=== PATIENT | female | born 1980 | race Caucasian/White ===

== ENCOUNTER 2020-01-03 00:04 | Outpatient (CLI) | payer OTHER, SELFPAY ==
[2020-01-04 17:28] LABS: SARS-CoV-2 RNA PCR Negative
== END 2020-01-03 00:05 | disposition home or self-care (01) ==
LOC: ANHCOVIDDT 00:04
PROVIDERS: PCP Family Medicine; Visit Provider Obstetrics & Gynecology Gynecology
DX: Z01.818 Encounter for other preprocedural examination (principal); Z11.59 Encounter for screening for other viral diseases
CPT/HCPCS: 87635; C9803; U0003

== ENCOUNTER 2020-01-06 02:01 | Day surgery (SDC) | payer OTHER, SELFPAY ==
[2019-12-30 10:30] VITALS: BMI 35.9
[2020-01-06] VITALS (9 sets, daily range): BP systolic 101–146; BP diastolic 52–102; PULSE 73–110; RESP 13–20; TEMP 36.1–36.8; O2SAT 92–99
[2020-01-06] MEDS: LACTATED RINGERS 1,000 ML 30 ML IV CONT ×2 (06:45→08:07)
[2020-01-06] MEDS: SCOPOLAMINE 1.5 MG PATCH TRANSDERM (06:45)
--- NOTE | 2020-01-06 06:50 | WPDANESEPPF ---
Anes - Initial Pre Proc Eval Procedure: Operation Date: 01/06/20 07:30 Proposed Procedures p Laparoscopic Bilateral Tubal Ligation with Fallopian Rings - Megan Stephen MD Date/Time: 01/06/20 06:50 Surgeon: Megan Stephen MD Pre Op Diagnosis: desires sterilization Patient Data Age: 39 Gender: F Height: 5 ft 1 in Weight: 88.1 kg Last Vital Signs Temp 36.8 C 01/06/20 06:15 Pulse 110 H 01/06/20 06:15 Resp 13 01/06/20 06:15 BP 137/86 01/06/20 06:15 Pulse Ox 99 01/06/20 06:15 Allergies Allergy/AdvReac Type Severity Reaction Status Date / Time house dust Allergy Unknown Sneezing Verified 12/30/19 10:31 mold Allergy Unknown Sneezing Verified 12/30/19 10:31 pollen extracts Allergy Unknown Sneezing Verified 12/30/19 10:31 Quinolones AdvReac Mild Confusion Verified 12/30/19 10:31 levofloxacin AdvReac Unknown Confusion Verified 12/30/19 10:31 Home Medications Medication Instructions Recorded Confirmed Type cetirizine [Zyrtec] 10 mg PO DAILY PRN 12/30/19 12/30/19 History dextroamphetamine-amphetamine 10 mg PO DAILY 12/30/19 12/30/19 History [Adderall XR] dextroamphetamine-amphetamine 20 mg PO DAILY 12/30/19 12/30/19 History [Adderall XR] duloxetine 60 mg PO DAILY 12/30/19 12/30/19 History fexofenadine [Ghazal Allergy] 180 mg PO DAILY PRN 12/30/19 12/30/19 History Patient hx anesthesia problems: post op nausea/vomiting Family hx anesthesia problems: none PMFSH Social History Social History Smoking status: Never smoker Tobacco type: cigarettes Alcohol intake: current Drinks per week: 1 Substance use: current Substance use type: marijuana Last use: 12/28/2019 Spiritual care concerns: No Anes - Eval Final PreProcedure Day of Procedure 01/06/20 06:50 Patient weight: obese Heart: regular rate and rhythm Lungs: clear to auscultation Airway: Mallampati scale class II Neurological: alert and oriented Last oral intake: >/= 8 hours ASA classification: III Emergent: no Anesthetic plan: proceed Anesthesia type and monitoring: general ETT and standard monitoring Informed Consent: The patient's anesthetic plan and its attendant risks and benefits were discussed with the patient/family/POA. Questions were solicited and answers provided to the satisfaction of the patient/family/POA.
--- NOTE | 2020-01-06 07:14 | P.HP_ITS ---
History of Present Illness History of Present Illness Consent: Risks, benefits, and alternatives have been discussed and questions answered. Patient agrees to proceed with procedure. Chief complaint: desires sterilization Narrative: Ines John is a 39 year old female who has completed her childbearing and wants to proceed with permanent control. Reviewed laparoscopic BTL risks including infection, bleeding, injury to internal organs, failure with increased ectopic, and general anesthesia. Patient also wants her IUD removed. Patient is aware this is an irreversible sterilizing procedure. She states understanding and agrees to proceed. [facility] Surgical History Surgical History (Updated 01/06/20 @ 07:17 by Megan Stephen MD) H/O sinus surgery S/P knee surgery x 3 Social History Social History Smoking status: Never smoker Tobacco type: cigarettes Alcohol intake: current Drinks per week: 1 Substance use: current Substance use type: marijuana Last use: 12/28/2019 Spiritual care concerns: No Meds Home Medications and Allergies Home Medications Medication Instructions Recorded Confirmed Type cetirizine [Zyrtec] 10 mg PO DAILY PRN 12/30/19 12/30/19 History dextroamphetamine-amphetamine 10 mg PO DAILY 12/30/19 12/30/19 History [Adderall XR] dextroamphetamine-amphetamine 20 mg PO DAILY 12/30/19 12/30/19 History [Adderall XR] duloxetine 60 mg PO DAILY 12/30/19 12/30/19 History fexofenadine [Ghazal Allergy] 180 mg PO DAILY PRN 12/30/19 12/30/19 History Allergies Allergy/AdvReac Type Severity Reaction Status Date / Time house dust Allergy Unknown Sneezing Verified 12/30/19 10:31 mold Allergy Unknown Sneezing Verified 12/30/19 10:31 pollen extracts Allergy Unknown Sneezing Verified 12/30/19 10:31 Quinolones AdvReac Mild Confusion Verified 12/30/19 10:31 levofloxacin AdvReac Unknown Confusion Verified 12/30/19 10:31 Vital Signs Vital Signs - 24 hr 01/06/20 06:15 Temperature 98.3 F Pulse Rate 110 H Respiratory Rate 13 Blood Pressure 137/86 Pulse Oximetry 99 Exam Const: General: no acute distress Resp: Auscultation: clear to auscultation bilaterally Cardio: Rate: regular rate Rhythm: regular rhythm GI: GI Palp: Yes Soft to palpation : External Female Exam: normal external appearance Speculum Exam - Vagina: normal appearance of the vagina Speculum Exam - Cervix: Other cervical findings present (strings at os) Bimanual exam- vagina & uterus: normal bimanual exam Assessment and Plan Assessment and plan (1) Encounter for sterilization: Code(s): Z30.2 - Encounter for sterilization Status: Acute Assessment and Plan: Plan to proceed with laparoscopic BTL.
[2020-01-06] MEDS: KETOROLAC 30 MG/ML VIAL (*BKC) 15 MG IV PUSH (07:59)
--- NOTE | 2020-01-06 07:59 | PM.OP ---
Procedure Note - Brief Procedure Note - Brief Date of procedure: 01/06/20 Pre-op diagnosis: desires sterilization Post-op diagnosis: same Procedure performed: laparoscopic BTL with falope rings; removal of IUD Anesthesia: MARIBELL Surgeon: Megan Stephen MD Estimated blood loss (mL): 5 Drains: No Packing: No Pathology: none sent Complications: No immediate complications Condition: stable Disposition: PACU Findings: IUD strings present; IUD removed intact; Uterus 7 cm; normal appearing tubes, ovaries, and uterus
--- NOTE | 2020-01-06 13:02 | OP_ITS ---
DATE OF PROCEDURE: 01/06/2020 PREOPERATIVE DIAGNOSIS: Requests sterilization and removal of IUD. POSTOPERATIVE DIAGNOSIS: Requests sterilization and removal of IUD. PROCEDURE: Laparoscopic bilateral tubal ligation with Falope rings and removal of IUD. ANESTHESIA: General with ET tube. FINDINGS: The IUD strings are at the os. The IUD is removed intact. The uterus sounds to 7 cm. The tubes, ovaries, and uterus appear grossly normal. ESTIMATED BLOOD LOSS: 5 cc. PATHOLOGY: None. DESCRIPTION OF PROCEDURE: The patient was taken to the operating room, placed under general anesthesia in the dorsal lithotomy position. She was prepped and draped in the usual sterile fashion. Bladder was drained with a red rubber catheter. Perkins speculum was placed in the vagina. Cervix was grasped on the anterior lip with a tenaculum. The IUD strings were grasped. The IUD is removed intact and discarded. The uterus was sounded to 7 cm. A 6 cm roomy manipulator was placed. All other vaginal instruments were removed. Attention was turned to the abdomen. A vertical skin incision was made at the base of the umbilicus. The abdomen was tented with towel clamps and the Veress needle placed. Opening patient pressure was 7 mmHg. Pneumoperitoneum was obtained to a patient pressure of 15. The Veress needle was removed. The 5 mm Optiview to trocar was placed while tenting the abdomen with the towel clamps. Intraabdominal placement was confirmed with the laparoscope. Towel clamps were removed. The patient was placed in Trendelenburg. An 8 mm skin incision was made 2 cm above the symphysis pubis in the midline. The 8 mm trocar was placed. There is significant tenting of the peritoneum. The hook scissors are used under direct visualization to enter the peritoneum. The trocar was then able to be placed fully over the peritoneum. The sleeve is entered into the cavity. The blunt probe was used to bring the tubes into view. The ring applicator is used to grasp the left tube. A good loop of tube was brought up into the applicator and a ring applied. The identical procedure was performed on the opposite side. The applicator misfired and had to be reset removing the ring lower on to the middle portion of the applicator. The ring was then able to be applied. A good loop of tube was noted on both sides. Instruments were removed. Pneumoperitoneum was reduced. Vaginal instruments were removed. Skin incisions were closed by the per diem physical therapist assistant with 4-0 nylon in an interrupted fashion. The patient was awakened from anesthesia and taken to Recovery in stable condition. D I MT: Scooby
== END 2020-01-06 10:06 | disposition home or self-care (01) ==
PROVIDERS: PCP Family Medicine; Visit Provider Obstetrics & Gynecology Gynecology
PROC: (CPT 58671; principal; 2020-01-06 07:30)
DX: Z30.2 Encounter for sterilization (principal); Z30.432 Encounter for removal of intrauterine contraceptive device; F12.90 Cannabis use, unspecified, uncomplicated; E66.9 Obesity, unspecified; Z68.36 Body mass index [BMI] 36.0-36.9, adult
CPT/HCPCS: 58671; 58301; 87635; A4264; A9270; C9803; J0330; J1100; J1885; J2250; J2405; J2704; J3010; J7030; J7120; U0003

== ENCOUNTER → 2020-05-16 11:44 | Outpatient (CLI) | payer OTHER, SELFPAY ==
--- NOTE | ~2020-05-16 | US_ITS ---
EXAMINATION: US thyroid EXAM DATE: 05/16/2020 12:15 INDICATION: Multinodular goiter TECHNIQUE: Multiple grayscale and Doppler images of the thyroid were obtained (by a technologist who performed the scan) and subsequently reviewed. Individual nodules and recommendations may be reporte d in accordance with TI-RADS system as designated by the 2017 ACR White Paper TI-RADS committee. Kiana blanco is made to prior examination from 10/29/2015. FINDINGS: The right there are lobe measures 5.8 x 2.3 x 1.9 cm, moderately enlarged. The left thyroid lobe jennifer ures 5.5 x 2.7 x 2.1 cm, moderately enlarged. There are scattered thyroid nodules. Largest nodule is in the left thyroid lobe measuring 2.8 x 2.5 x 2.0 cm, solid (2 points), hypoechoic (2 points), wider than tall, smooth margin, without echogenic foci, category TR4 for this nodule. I n 2016 this nodule measured about 2.2 x 1.6 x 1.1 cm, has increased in size. Largest nodule is in the right thyroid lobe measuring 1.5 x 1.2 x 1.1 cm, solid (2 points), hypoechoi c (2 points), wider than tall, smooth margin, without echogenic foci, category TR4 for this nodule. T his nodule is unchanged compared to 2016, not likely clinically significant. IMPRESSION: Multinodular goiter, with mild enlargement of dominant, left thyroid lobe nodule compared to 2016 ultrasound; consider ultrasound guided FNA. Reviewed, dictated and finalized at location A. ING OFFICER IMPRESSION: Multinodular goiter, with mild enlargement of dominant, left thyroi d lobe nodule compared to 2016 ultrasound; consider ultrasound guided FNA.
== END ==
PROVIDERS: PCP Family Medicine; Visit Provider Internal Medicine Endocrinology, Diabetes & Metabolism
DX: E04.2 Nontoxic multinodular goiter (principal)
CPT/HCPCS: 76536

== ENCOUNTER 2020-06-11 10:49 | Outpatient (CLI) | payer OTHER, SELFPAY ==
--- NOTE | ~2020-06-11 | US_ITS ---
EXAMINATION: US FNA w image guidance DATE: 06/11/2020 11:47 INDICATION: Nontoxic multinodular goiter TECHNIQUE: A time-out was performed to verify the patient's name, date of , and procedure to be performed . The procedure and its benefits and risks were discussed with the patient. Risks specifically discus sed included bleeding and infection. The patient understood the risks and agreed to proceed. The neck was prepped and draped in the usual sterile manner. Attention was first turned to the left thyroid n odule. 3 mL 1% lidocaine was used for local anesthesia. 5 passes were made with a 25G needle into th e lesion. Appropriate needle location was documented with continuous sonographic guidance. Attention was then turned to the right thyroid nodule. An additional 3 mL 1% lidocaine was used for local anes thesia. 5 passes were made with a 25G needle into the lesion. Appropriate needle location was docume nted with continuous sonographic guidance. Sterile bandages were applied. There were no immediate co mplications. FINDINGS: Grayscale ultrasound images demonstrate biopsy needles advanced into a 2.9 cm solid left thyroid nodu le. Subsequent images demonstrate biopsy needle advanced into a smaller solid right thyroid nodule me asuring 1.3 cm in maximal AP diameter on the current images, 1.5 cm in craniocaudal length on the soren or study. IMPRESSION: 1. Successful ultrasound-guided fine needle aspiration of solid bilateral thyroid nodules measuring 2.9 cm on the left and 1.5 cm in the right. Reviewed, dictated and finalized at location A. GER EXCHANGE IMPRESSION: 1. Successful ultrasound-guided fine needle aspiration of solid bilateral thyr oid nodules measuring 2.9 cm on the left and 1.5 cm in the right.
--- NOTE | ~2020-06-11 | US_ITS ---
EXAMINATION: US FNA w image guidance DATE: 06/11/2020 11:47 INDICATION: Nontoxic multinodular goiter TECHNIQUE: A time-out was performed to verify the patient's name, date of , and procedure to be performed . The procedure and its benefits and risks were discussed with the patient. Risks specifically discus sed included bleeding and infection. The patient understood the risks and agreed to proceed. The neck was prepped and draped in the usual sterile manner. Attention was first turned to the left thyroid n odule. 3 mL 1% lidocaine was used for local anesthesia. 5 passes were made with a 25G needle into the lesion. Appropriate needle location was documented with continuous sonographic guidance. Attention w as then turned to the right thyroid nodule. An additional 3 mL 1% lidocaine was used for local anesth esia. 5 passes were made with a 25G needle into the lesion. Appropriate needle location was documente d with continuous sonographic guidance. Sterile bandages were applied. There were no immediate compli cations. FINDINGS: Grayscale ultrasound images demonstrate biopsy needles advanced into a 2.9 cm solid left thyroid nodu le. Subsequent images demonstrate biopsy needle advanced into a smaller solid right thyroid nodule me asuring 1.3 cm in maximal AP diameter on the current images, 1.5 cm in craniocaudal length on the soren or study. IMPRESSION: 1. Successful ultrasound-guided fine needle aspiration of solid bilateral thyroid nodules measuring 2 .9 cm on the left and 1.5 cm in the right. Reviewed, dictated and finalized at location A. LIBRARY DIRECTOR IMPRESSION: 1. Successful ultrasound-guided fine needle aspiration of solid bilateral thyro id nodules measuring 2.9 cm on the left and 1.5 cm in the right.
== END 2020-06-11 10:50 | disposition home or self-care (01) ==
PROVIDERS: PCP Family Medicine; Visit Provider Internal Medicine Endocrinology, Diabetes & Metabolism
DX: E04.2 Nontoxic multinodular goiter (principal)
CPT/HCPCS: 10005; 10006; 88173; 88305

== ENCOUNTER 2020-10-16 07:51 | Outpatient (CLI) | payer OTHER, SELFPAY ==
[2020-10-16 08:41] LABS: Alanine Aminotransferase 14 U/L (4-35); Albumin Level 4.6 g/dL (3.5-5.1); Alkaline Phosphatase 59 U/L (38-126); Anion Gap 7 mmol/L (8-16); Aspartate Amino Transferase 24 U/L (14-36); Bilirubin,Total 0.4 mg/dL (0.2-1.3); Blood Urea Nitrogen 21 mg/dL (7-17); Calcium 9.6 mg/dL (8.4-10.2); Carbon Dioxide 29 mmol/L (22-30); Chloride 104 mmol/L (98-107); Estimated Glomerular Filt Rate > 60; Glucose 109 mg/dL (65-105); Potassium 5.2 mmol/L (3.4-5.0); Sodium 140 mmol/L (137-145)
[2020-10-16 09:39] LABS: Free T4 Free Thyroxine 0.79 ng/mL (0.78-2.19)
[2020-10-16 09:45] LABS: Folic Acid 4.9 ng/mL (2.76->20)
[2020-10-19 05:39] LABS: DHEA-Sulfate 362 mcg/dL (23-266); Insulin Level Total 12.1 uIU/mL (<=19.6); Thyroid Peroxidase Antibodies 18 IU/mL (<9)
[2020-10-21 16:39] LABS: Testosterone Free 2.2 pg/mL (0.1-6.4); Testosterone Total 13 ng/dL (2-45)
== END 2020-10-16 07:52 | disposition home or self-care (01) ==
PROVIDERS: PCP Family Medicine; Visit Provider Internal Medicine Endocrinology, Diabetes & Metabolism
DX: E28.2 Polycystic ovarian syndrome (principal); E06.3 Autoimmune thyroiditis
CPT/HCPCS: 36415; 80053; 82607; 82627; 82746; 83525; 84402; 84403; 84439; 84443; 84481; 86376

== ENCOUNTER 2021-01-13 07:19 | Outpatient (CLI) | payer OTHER, SELFPAY ==
[2021-01-13 08:12] LABS: Alanine Aminotransferase 15 U/L (4-35); Albumin Level 4.2 g/dL (3.5-5.1); Alkaline Phosphatase 64 U/L (38-126); Anion Gap 9 mmol/L (8-16); Aspartate Amino Transferase 26 U/L (14-36); Bilirubin,Total 0.5 mg/dL (0.2-1.3); Blood Urea Nitrogen 15 mg/dL (7-17); Calcium 9.4 mg/dL (8.4-10.2); Carbon Dioxide 26 mmol/L (22-30); Chloride 102 mmol/L (98-107); Estimated Glomerular Filt Rate > 60; Glucose 93 mg/dL (65-105); Potassium 4.2 mmol/L (3.4-5.0); Sodium 137 mmol/L (137-145)
[2021-01-13 08:36] LABS: Free T4 Free Thyroxine 1.14 ng/mL (0.78-2.19)
[2021-01-13 08:40] LABS: Thyroid Stimulating Hormone < 0.015 uIU/mL (0.465-4.680)
[2021-01-17 23:12] LABS: DHEA-Sulfate 393 mcg/dL (23-266)
[2021-01-19 03:35] LABS: Insulin Level Total 4.3 uIU/mL (<=19.6); Thyroid Peroxidase Antibodies 14 IU/mL (<9)
[2021-01-19 14:53] LABS: Calcitonin <2 pg/mL (<=5)
[2021-01-19 17:49] LABS: Testosterone Free 5.3 pg/mL (0.1-6.4); Testosterone Total 29 ng/dL (2-45)
[2021-01-20 15:39] LABS: Triiodothyronine T3 Free 3.3 pg/mL (2.3-4.2)
== END 2021-01-13 07:20 | disposition home or self-care (01) ==
LOC: ANHLAB 07:22
PROVIDERS: PCP Family Medicine; Visit Provider Internal Medicine Endocrinology, Diabetes & Metabolism
DX: E28.2 Polycystic ovarian syndrome (principal); E06.3 Autoimmune thyroiditis; E04.1 Nontoxic single thyroid nodule
CPT/HCPCS: 36415; 80053; 82308; 82627; 83525; 84402; 84403; 84439; 84443; 84481; 86376

== ENCOUNTER → 2021-01-20 12:39 | Outpatient (CLI) | payer OTHER, SELFPAY ==
--- NOTE | ~2021-01-20 | US_ITS ---
EXAMINATION: US thyroid EXAM DATE: 01/20/2021 13:11 INDICATION: Thyroid nodule. Thyroid nodules biopsied bilaterally 06/11/2020, reportedly with benign r esults. TECHNIQUE: Multiple grayscale and Doppler images of the thyroid were obtained (by a technologist who performed the scan) and subsequently reviewed. Individual nodules and recommendations may be reporte d in accordance with TI-RADS system as designated by the 2017 ACR White Paper TI-RADS committee. Comp arison is made to prior examination from 05/16/2020, 06/11/2020. FINDINGS: The right thyroid lobe measures 4.9 x 2.2 x 2.2 cm, the left measuring 5.9 x 2.7 x 2.0 cm. These dime nsions are mildly enlarged. Again there are multiple thyroid nodules Largest nodule is in the left thyroid lobe measuring 2.6 x 2.5 x 2.1 cm (previous measurements 2.8 x 2.5 x 2.0), not significantly changed, correlate with prior histology. On the right side there is a thyroid nodule measuring 1.8 x 1.2 x 1.2 cm (previously dimensions provi ded at 1.5 x 1.2 x 1.0 cm), not significant changed accounting for differences in technique, correlat e with prior histology. IMPRESSION: Multinodular goiter, likely benign. Reviewed, dictated and finalized at location G.
== END ==
PROVIDERS: PCP Family Medicine; Visit Provider Internal Medicine Endocrinology, Diabetes & Metabolism
DX: E04.2 Nontoxic multinodular goiter (principal)
CPT/HCPCS: 76536

== ENCOUNTER 2021-05-26 07:32 | Outpatient (CLI) | payer OTHER, SELFPAY ==
[2021-05-26 08:22] LABS: Alanine Aminotransferase 13 U/L (4-35); Albumin Level 4.6 g/dL (3.5-5.1); Alkaline Phosphatase 85 U/L (38-126); Anion Gap 8 mmol/L (8-16); Aspartate Amino Transferase 21 U/L (14-36); Bilirubin,Total 0.3 mg/dL (0.2-1.3); Blood Urea Nitrogen 14 mg/dL (7-17); Calcium 9.4 mg/dL (8.4-10.2); Carbon Dioxide 28 mmol/L (22-30); Chloride 100 mmol/L (98-107); Estimated Glomerular Filt Rate > 60; Glucose 109 mg/dL (65-110); Potassium 4.7 mmol/L (3.4-5.0); Sodium 136 mmol/L (137-145)
[2021-05-26 08:52] LABS: Thyroid Stimulating Hormone 0.345 uIU/mL (0.465-4.680)
[2021-05-26 09:10] LABS: Free T4 Free Thyroxine 0.88 ng/mL (0.78-2.19)
[2021-05-26 09:32] LABS: Folic Acid 7.7 ng/mL (2.76->20); Vitamin B12 > 1000.0 pg/mL (239-931)
[2021-05-29 07:34] LABS: Triiodothyronine T3 Free 2.3 pg/mL (2.3-4.2)
[2021-05-29 10:41] LABS: DHEA-Sulfate 438 mcg/dL (23-266); Thyroid Peroxidase Antibodies 13 IU/mL (<9)
[2021-05-31 12:37] LABS: Testosterone Free 3.5 pg/mL (0.1-6.4); Testosterone Total 19 ng/dL (2-45)
== END 2021-05-26 07:33 | disposition home or self-care (01) ==
LOC: ANHLAB 07:35
PROVIDERS: PCP Family Medicine; Visit Provider Internal Medicine Endocrinology, Diabetes & Metabolism
DX: E06.3 Autoimmune thyroiditis (principal); E53.8 Deficiency of other specified B group vitamins; E28.2 Polycystic ovarian syndrome
CPT/HCPCS: 36415; 80053; 82607; 82627; 82746; 84402; 84403; 84439; 84443; 84481; 86376

== ENCOUNTER 2021-08-10 17:59 | Emergency (ER) | payer OTHER, SELFPAY ==
--- NOTE | 2021-08-10 18:02 | ED.SKABFB ---
HPI - Skin/Abscess/Foreign Bdy General Chief complaint: Skin/Abscess/Foreign Body Stated complaint: hives Time Seen by Provider: 08/10/21 18:10 Source: patient, RN notes reviewed and old records reviewed Mode of arrival: ambulatory Limitations: no limitations History of Present Illness HPI narrative: 41-year-old female presents to the [facility] with a rash to her face, neck back. States that she just started amoxicillin yesterday. Has taken amoxicillin in the past and never had a reaction. Is taking amoxicillin for a dental issue. Has called her dental provider. Patient is denying any lip swelling, trouble breathing, chest pain or abdominal pain. Has taken Benadryl and applied hydrocortisone cream with minimal relief. MD complaint: rash Related Data Home Medications Medication Instructions Recorded Confirmed cetirizine [Zyrtec] 10 mg PO DAILY PRN 12/30/19 12/30/19 dextroamphetamine-amphetamine 10 mg PO DAILY 12/30/19 12/30/19 [Adderall XR] dextroamphetamine-amphetamine 20 mg PO DAILY 12/30/19 12/30/19 [Adderall XR] duloxetine 60 mg PO DAILY 12/30/19 12/30/19 fexofenadine [Ghazal Allergy] 180 mg PO DAILY PRN 12/30/19 12/30/19 amoxicillin 08/10/21 metformin mg PO 08/10/21 spironolactone 08/10/21 Allergies Allergy/AdvReac Type Severity Reaction Status Date / Time amoxicillin Allergy Intermediate hives Verified 08/11/21 09:37 house dust Allergy Unknown Sneezing Verified 12/30/19 10:31 mold Allergy Unknown Sneezing Verified 12/30/19 10:31 pollen extracts Allergy Unknown Sneezing Verified 12/30/19 10:31 Quinolones AdvReac Mild Confusion Verified 12/30/19 10:31 levofloxacin AdvReac Unknown Confusion Verified 12/30/19 10:31 Review of Systems Review of Systems: All systems reviewed & are unremarkable except as noted in HPI and below Constitutional: Constitutional: Reports no additional constitutional complaints, Denies chills and Denies fever(s) Eyes: Eyes: Reports no additional eye complaints ENT: Reports system reviewed and no additional complaints, except as documented Cardiovascular: Cardiovascular: Reports no additional cardiovascular complaints, Denies chest pain and Denies dyspnea Respiratory: Respiratory: Reports no additional respiratory complaints, Denies cough, Denies dyspnea and Denies wheezing Gastrointestinal: Gastrointestinal: Reports no additional gastrointestinal complaints, Denies abdominal pain, Denies nausea and Denies vomiting Musculoskeletal: Musculoskeletal: Reports no additional musculoskeletal complaints Integumentary/Breasts: Skin/Breast: Reports as per HPI and Reports rash Neurologic: Reports system reviewed and no additional complaints, except as documented Psychiatric: Psychiatric: Reports no additional psychiatric complaints Allergic/Immunologic: Allergic/Immunologic: Reports as per HPI, Denies GI upset with certain foods, Reports urticaria, Denies itchy eyes, Denies lip swelling, Denies seasonal rhinorrhea, Denies throat swelling, Denies tongue swelling and Denies wheezing PMFSH Surgical History Surgical History H/O sinus surgery S/P knee surgery x 3 Social History Social History Smoking status: Never smoker Tobacco type: cigarettes Alcohol intake: current Drinks per week: 1 Substance use: current Substance use type: marijuana Last use: 12/28/2019 Spiritual care concerns: No Comments At the time of my signature, I reviewed and agree with the nursing past medical, surgical, social, and family history. There is no relevant family history pertinent to the patient complaint. Exam Const: General: healthy appearing, no acute distress and alert Nutritional Appearance: well nourished Orientation/consciousness: patient oriented x3 Limitations: no limitations HENMT: Head: normal to inspection Ears: external ears normal, TM's normal bilaterally and EAC's nor
[2021-08-10 18:09] VITALS: BP 147/89; PULSE 110; RESP 20; TEMP 37.1; O2SAT 100
== END 2021-08-10 18:22 | disposition home or self-care (01) ==
PROVIDERS: Emergency Provider Nurse Practitioner; PCP Family Medicine
DX: L50.0 Allergic urticaria (principal); E03.9 Hypothyroidism, unspecified
CPT/HCPCS: 99213; G0463

== ENCOUNTER 2021-11-03 07:03 | Outpatient (CLI) | payer OTHER, SELFPAY ==
[2021-11-03 08:47] LABS: Alanine Aminotransferase 14 U/L (4-35); Albumin Level 4.6 g/dL (3.5-5.1); Alkaline Phosphatase 71 U/L (38-126); Anion Gap 6 mmol/L (8-16); Aspartate Amino Transferase 22 U/L (14-36); Bilirubin,Total 0.2 mg/dL (0.2-1.3); Blood Urea Nitrogen 14 mg/dL (7-17); Calcium 9.2 mg/dL (8.4-10.2); Carbon Dioxide 26 mmol/L (22-30); Chloride 104 mmol/L (98-107); Estimated Glomerular Filt Rate > 60; Glucose 101 mg/dL (65-110); Potassium 4.1 mmol/L (3.4-5.0); Sodium 136 mmol/L (137-145)
[2021-11-03 09:16] LABS: Thyroid Stimulating Hormone 0.029 uIU/mL (0.465-4.680)
[2021-11-03 09:52] LABS: Folic Acid 14.3 ng/mL (2.76->20)
[2021-11-03 10:05] LABS: Free T4 Free Thyroxine 1.07 ng/mL (0.78-2.19)
[2021-11-06 06:30] LABS: DHEA-Sulfate 466 mcg/dL (23-266); Insulin Level Total 9.2 uIU/mL (<=19.6); Thyroid Peroxidase Antibodies 18 IU/mL (<9)
[2021-11-06 08:09] LABS: Triiodothyronine T3 Free 3.1 pg/mL (2.3-4.2)
[2021-11-08 14:51] LABS: Testosterone Free 3.3 pg/mL (0.1-6.4); Testosterone Total 20 ng/dL (2-45)
== END 2021-11-03 07:04 | disposition home or self-care (01) ==
LOC: ANHLAB 07:05
PROVIDERS: PCP Family Medicine; Visit Provider Internal Medicine Endocrinology, Diabetes & Metabolism
DX: E03.9 Hypothyroidism, unspecified (principal); E28.2 Polycystic ovarian syndrome; E53.8 Deficiency of other specified B group vitamins
CPT/HCPCS: 36415; 80053; 82607; 82627; 82746; 83525; 84402; 84403; 84439; 84443; 84481; 86376

== ENCOUNTER 2021-11-15 07:24 | Outpatient (CLI) | payer OTHER, SELFPAY ==
--- NOTE | ~2021-11-15 | MM_ITS ---
EXAMINATION: MM screening gian BI w liliane HISTORY: Screening mammogram TECHNIQUE: Craniocaudal and mediolateral oblique 3-D tomosynthesis images were obtained and synthetic 2-D images were generated. CAD analysis was submitted and interpreted. COMPARISON: 11/11/2016 BREAST PARENCHYMAL COMPOSITION: The breasts are heterogeneously dense, which may obscure small masses . FINDINGS: There is no suspicious mass, calcification, or architectural distortion to suggest malignan cy in either breast. There has been no suspicious interval change. IMPRESSION: 1. No mammographic evidence of malignancy. 2. Recommend routine screening mammography in one year. BI-RADS Category 1: Negative Reviewed, dictated and finalized at location A.
== END 2021-11-15 07:25 | disposition home or self-care (01) ==
LOC: ANHIMG 07:26
PROVIDERS: PCP Family Medicine; Visit Provider Obstetrics & Gynecology Gynecology
DX: Z12.31 Encounter for screening mammogram for malignant neoplasm of breast (principal)
CPT/HCPCS: 77063; 77067

== ENCOUNTER 2022-05-02 14:39 | Outpatient (CLI) | payer OTHER, SELFPAY ==
[2022-05-02 16:00] LABS: Anion Gap 10 mmol/L (8-16); Blood Urea Nitrogen 17 mg/dL (7-17); Calcium 8.9 mg/dL (8.4-10.2); Carbon Dioxide 26 mmol/L (22-30); Chloride 104 mmol/L (98-107); Cholesterol 201 mg/dL (0-200); Estimated Glomerular Filt Rate > 60; Glucose 81 mg/dL (65-110); HDL Direct 53 mg/dL; Potassium 4.3 mmol/L (3.4-5.0); Sodium 140 mmol/L (137-145); Triglycerides 102 mg/dL (<150)
[2022-05-02 16:02] LABS: Hemoglobin A1C 5.2 % (<5.7)
[2022-05-02 16:12] LABS: LDL Cholesterol Direct 115 mg/dL
[2022-05-02 17:08] LABS: Folic Acid 14.8 ng/mL (2.76->20)
[2022-05-05 13:46] LABS: Insulin Level Total 2.9 uIU/mL (<=19.6)
== END 2022-05-02 14:40 | disposition home or self-care (01) ==
PROVIDERS: PCP Physician Assistant; Visit Provider Internal Medicine Endocrinology, Diabetes & Metabolism
DX: Z13.220 Encounter for screening for lipoid disorders (principal); Z13.1 Encounter for screening for diabetes mellitus
CPT/HCPCS: 36415; 80048; 80061; 82607; 82746; 83036; 83525

== ENCOUNTER 2023-03-14 14:01 | Outpatient (CLI) | payer OTHER, SELFPAY ==
--- NOTE | ~2023-03-14 | MM_ITS ---
EXAMINATION: MM screening gian BI w liliane HISTORY: Screening mammogram TECHNIQUE: Craniocaudal and mediolateral oblique 3-D tomosynthesis images were obtained and synthetic 2-D images were generated. CAD analysis was submitted and interpreted. COMPARISON: 11/15/2021 bilateral screening mammogram 11/11/2016 bilateral diagnostic mammogram and bilateral breast ultrasound examination BREAST PARENCHYMAL COMPOSITION: The breasts are heterogeneously dense, which may obscure small masses . FINDINGS: There is no evidence of suspicious mass, calcification, or architectural distortion to sugg est malignancy in either breast. There has been no suspicious interval change. IMPRESSION: 1. No mammographic evidence of malignancy. 2. Recommend routine screening mammography in one year. BI-RADS Category 1: Negative Reviewed, dictated and finalized at location A.
== END 2023-03-14 14:02 | disposition home or self-care (01) ==
PROVIDERS: PCP Physician Assistant; Visit Provider Nurse Practitioner
DX: Z12.31 Encounter for screening mammogram for malignant neoplasm of breast (principal)
CPT/HCPCS: 77063; 77067

== ENCOUNTER 2023-03-31 12:14 | Outpatient (CLI) | payer OTHER, SELFPAY ==
[2023-03-31 13:08] LABS: Alanine Aminotransferase 15 U/L (6-35); Albumin Level 4.8 g/dL (3.5-5.1); Alkaline Phosphatase 61 U/L (38-126); Anion Gap 5 mmol/L (8-16); Aspartate Amino Transferase 22 U/L (14-36); Bilirubin,Total 0.5 mg/dL (0.2-1.3); Blood Urea Nitrogen 14 mg/dL (7-17); Calcium 9.3 mg/dL (8.4-10.2); Carbon Dioxide 29 mmol/L (22-30); Chloride 104 mmol/L (98-107); Estimated Glomerular Filt Rate > 60; Glucose 98 mg/dL (65-110); Potassium 4.1 mmol/L (3.4-5.0); Sodium 138 mmol/L (137-145)
[2023-03-31 13:35] LABS: Thyroid Stimulating Hormone 0.287 uIU/mL (0.465-4.680)
[2023-04-03 03:19] LABS: DHEA-Sulfate 543 mcg/dL (19-231); Thyroid Peroxidase Antibodies 10 IU/mL (<9)
[2023-04-04 17:23] LABS: Testosterone Free 2.5 pg/mL (0.1-6.4); Testosterone Total 16 ng/dL (2-45)
[2023-04-04 21:29] LABS: Insulin Level Total 7.5 uIU/mL (<=18.4)
[2023-04-06 05:25] LABS: Triiodothyronine T3 Free 2.7 pg/mL (2.3-4.2)
== END 2023-03-31 12:15 | disposition home or self-care (01) ==
LOC: ANHLAB 12:20
PROVIDERS: PCP Physician Assistant; Visit Provider Internal Medicine Endocrinology, Diabetes & Metabolism
DX: E03.9 Hypothyroidism, unspecified (principal); E28.2 Polycystic ovarian syndrome
CPT/HCPCS: 36415; 80053; 82627; 83525; 84402; 84403; 84443; 84481; 86376

== ENCOUNTER 2024-04-04 08:14 | Outpatient (CLI) | payer OTHER, SELFPAY ==
[2024-04-04 09:43] LABS: Cortisol Baseline 0.99 ug/dL
[2024-04-04 10:14] LABS: Anion Gap 7 mmol/L (4-12); Blood Urea Nitrogen 14 mg/dL (7-17); Calcium 9.2 mg/dL (8.4-10.2); Carbon Dioxide 26 mmol/L (22-30); Chloride 105 mmol/L (98-107); Estimated Glomerular Filt Rate > 60; Glucose 98 mg/dL (65-110); Potassium 4.3 mmol/L (3.4-5.0); Sodium 138 mmol/L (137-145)
[2024-04-04 10:42] LABS: Thyroid Stimulating Hormone 0.106 uIU/mL (0.465-4.680)
[2024-04-05 10:14] LABS: DHEA-Sulfate 250 mcg/dL (15-205)
== END 2024-04-04 08:15 | disposition home or self-care (01) ==
LOC: ANHLAB 08:18
PROVIDERS: PCP Family Medicine; Visit Provider Internal Medicine Endocrinology, Diabetes & Metabolism
DX: E04.1 Nontoxic single thyroid nodule (principal); R79.89 Other specified abnormal findings of blood chemistry; E28.2 Polycystic ovarian syndrome
CPT/HCPCS: 36415; 80048; 82533; 82627; 83498; 84439; 84443

== ENCOUNTER 2024-05-15 10:53 | Outpatient (CLI) | payer OTHER, SELFPAY ==
[2024-05-15 11:28] LABS: Alanine Aminotransferase 14 U/L (6-35); Albumin Level 4.2 g/dL (3.5-5.1); Alkaline Phosphatase 68 U/L (38-126); Anion Gap 6 mmol/L (4-12); Aspartate Amino Transferase 23 U/L (14-36); Bilirubin,Total 0.4 mg/dL (0.2-1.3); Blood Urea Nitrogen 17 mg/dL (7-17); Calcium 8.9 mg/dL (8.4-10.2); Carbon Dioxide 26 mmol/L (22-30); Chloride 108 mmol/L (98-107); Estimated Glomerular Filt Rate > 60; Glucose 98 mg/dL (65-110); Potassium 4.5 mmol/L (3.4-5.0); Sodium 140 mmol/L (137-145)
[2024-05-15 11:55] LABS: Thyroid Stimulating Hormone 0.625 uIU/mL (0.465-4.680)
[2024-05-15 12:09] LABS: Free T4 Free Thyroxine 0.79 ng/mL (0.78-2.19)
== END 2024-05-15 10:54 | disposition home or self-care (01) ==
LOC: ANHLAB 10:54
PROVIDERS: PCP Family Medicine; Visit Provider Internal Medicine Endocrinology, Diabetes & Metabolism
DX: E28.2 Polycystic ovarian syndrome (principal); E03.9 Hypothyroidism, unspecified; E04.1 Nontoxic single thyroid nodule
CPT/HCPCS: 36415; 80053; 84439; 84443

== ENCOUNTER 2024-11-11 08:54 | Outpatient (CLI) | payer OTHER, SELFPAY ==
--- OUTSIDE RECORDS SUMMARY | 2024-11-11 09:02 | XMS_ITS | Clinical Summary ---
Author Organization [facility] Address [facility] [place] [address] Care Team Providers Care Continuous Towel Roller Name Role Phone Flavia Torrez MD Primary Care Provider [phone] Social History Tobacco Use Types Packs/Day Years Used Date Smoking Tobacco: Never Assessed Comments Unknown Sex and Gender Information Value Date Recorded Sex Assigned at Not on file Legal Sex Female 6:20 PM CDT Gender Identity Not on file Sexual Orientation Not on file Plan of Treatment Health Maintenance Due Date Last Done Comments Cervical Cancer Screening Pap Smear (Age 30 to 64) Every 3 Years 1981 Annual Physical 1984 Hepatitis C 1999 Hepatitis B Vaccines (1 of 3 - 19+ 3-dose series) 2000 Cervical Cancer Screening Pap with HPV Testing (Age 30 to 64) Every 5 Years 2011 Cervical Cancer Screening with HPV 2011 Mammogram Screening 2021 COVID-19 Vaccine ( season) 2024 05/07/2021, 09/01/2020, 07/30/2020, Additional history exists DTaP, Tdap and Td Vaccines (2 - Td or Tdap) 10/24/2028 10/24/2018 HPV Vaccines Aged Out No longer eligi ble based on patient's age to complete this topic Meningococcal B Vaccine Aged Out No l onger eligible based on patient's age to complete this topic Meningococcal Vaccine Aged Out No alpa kwesi eligible based on patient's age to complete this topic Pneumococcal Vaccine: Pediatrics (0 to 5 Years) and At-Risk Patients (6 to 49 Years) Aged Out No longer eligible based on patient's age to complete this topic RSV Immunizations Under 20 Months Aged Out No longer eligible based on patient's age to complete this topic Insurance [facility] Care Teams Continuous Towel Roller Relationship Specialty Start Date End Date Flavia Torrez MD [address] [place] [address] [place] [address] PCP - General FAMILY PRACTICE 05/10/22
--- OUTSIDE RECORDS SUMMARY | 2024-11-11 09:02 | XMS_ITS | Referral Summary ---
Author Organization [facility] Address [facility] [place] [address] Care Team Providers Care Technology Integration Specialist Name Role Phone Jigna Penaloza NP Primary Care Provider [phone] Allergies Active Allergy Reactions Criticality Noted Date Comments Levofloxacin Dizziness Low Penicillins Diarrhea,Eye irritation,Hives,Itching,Rash,Redness, Stomach upset,Swelling Medium 10/24/2021 Medications cetirizine (ZyrTEC) 10 mg tabletIndications: Allergic Rhinitis Take 1 tablet (10 mg total) by mouth every morning Active levothyroxine (SYNTHROID) 88 mcg tabletIndications: hypothyroidism Take 1 tablet (88 mcg total) by mouth daily before breakfast Active metFORMIN (GLUCOPHAGE) 500 mg tabletIndications: Polycystic Ovarian Syndrome Take 1 tablet (500 mg total) by mouth daily with breakfast Active spironolactone (ALDACTONE) 100 mg tabletIndications: Polycystic Ovarian Syndrome Take 1 tablet (100 mg total) by mouth every morning Active buPROPion XL (WELLBUTRIN XL) 300 mg 24 hr tabletIndications: Anxiety with Depression Take 1 tablet (300 mg total) by mouth every morning Active DULoxetine DR (CYMBALTA) 60 mg capsule 3 Active dextroamphetamine- amphetamine XR (ADDERALL XR) 30 mg 24 hr capsuleIndications :Attention deficit hyperactivity disorder (ADHD), predominantly inattentive type Take 1 capsule (30 mg total) by mouth every morning 30 capsule 4 Active Active Problems Problem Noted Date Diagnosed Date Adjustment disorder 01/31/2024 Allergic rhinitis due to pollen 01/31/2024 Vitamin D deficiency 01/31/2024 Obesity (BMI 30-39.9) 08/11/2023 Assessment & Plan (08/11/2023 1:43 PM CANAL EQUIPMENT MECHANIC): Discussed the patients BMI: The BMI is above average BMI management is complete. BMI follow-up includes: Nutrition Counseling and education provided Physical exam, annual 08/11/2023 Acquired hypothyroidism 08/11/2023 Attention deficit hyperactiv ity disorder (ADHD), predominantly inattentive type 08/11/2023 Cough 12/16/2022 Femoroacetabular impingement of right hip 2022 Overview (08/30/2022): Added automatically from request for surgery [id number] Labral tear of hip, degenerative 08/30/2022 Overview (08/30/2022): Added automatically from request for surgery [id number] Polycystic ovary syndrome 11/08/2021 Vitamin B12 deficiency (non anemic) 11/08/2021 Greater trochanteric bursitis of left hip 2018 Left hip pain 02/05/2019 Poor concentration 11/28/2018 Numbness and tingling sensation of skin 06/07/20 18 Urinary incontinence 06/07/2018 Multinodular goiter 11/03/2015 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 Chronic infection of sinus 09/13/2011 Immunizations Immunization Administration Dates Next Due Influenza, Quadrivalent, Spl it, Preservative Free, Intramuscular 07/12/2023,03/30/2022,08/06/2020,03/13 Influenza, Trivalent, Preser vative Free, Intramuscular 05/10/2017 Influenza, Unspecified 07/12/2023 Social History Tobacco Use Types Packs/Day Years Used Date Smoking Tobacco: Never Smokeless Tobacco: Never Tobacco Cessation:Counseling Given: Not Answered Alcohol Use Standard Drinks/Week Comments Yes 0 (1 standard drink = 0.6 oz pur e alcohol) AUDIT-C Answer Date Recorded Frequency of Alcohol Consumption Not on file 09/19/2022 Q2: How many drinks containi ng alcohol do you have on a typical day when you are drinking? Patient does not drink Frequency of Binge Drinking Not on file 09/01 PHQ-2 Answer Date Recorded PHQ-2 Total Score (If total score is 3 or more points, staff should administer the PHQ-9) 0 08/11/2023 Personal Safety Answer Date Recorded Have you ever been in or are you currently in a harmful physical or emotional relationship or is someone making you feel afraid or unsafe? Denies 10/03/2022 Comments No Sex and Gender Information Value Date Recorded Sex Assigned at Not on file Legal Sex Female 3:30 AM CANAL EQUIPMENT MECHANIC Gender Identity Not on file Sexual Orientation Not on file 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 on file Not on file Not on file Last Filed Vital Signs Vital Sign Reading Time Taken Comments Blood Pressure 110/80 08/11/2023 1:35 PM CANAL EQUIPMENT MECHANIC Pulse 100 08/11/2023 1:35 PM CANAL EQUIPMENT MECHANIC Temperature 36.8 C (98.3 F) 08/11/2023 1:35 PM CANAL EQUIPMENT MECHANIC Respiratory Rate 25 10/03/2022 10:20 AM CDT Oxygen Saturation 97% 08/11/2023 1:35 PM CANAL EQUIPMENT MECHANIC Inhaled Oxygen Concentration - - Weight 74.4 kg (164 lb) 08/11/2023 1:35 PM CANAL EQUIPMENT MECHANIC Height 154.9 cm (5' 1 ) 08/11/2023 1:35 PM CANAL EQUIPMENT MECHANIC Body Mass Index 30.99 08/11/2023 1:35 PM CANAL EQUIPMENT MECHANIC Plan of Treatment Not on file Medical Devices Implanted Type Area Shuttle Final Inspector Device Identifier Shelf Expiration Date Model / Serial / Lot [employer] Cinchlock Ss Knotless Snubber Lock [place] Suture Labrum [id number] - [id number] Implanted:Qty: 1 on 10/03/2022 by Elva Kramer MD at [facility] Right: Hip [employer] 10/19/2022 [id number] / / [id number] [employer] Cinchlock Ss Knotless Snubber Lock [place] Suture Labrum [id number] - [id number] Implanted:Qty: 1 on 10/03/2022 by Elva Kramer MD at [facility] Right: Hip [employer] [facility] 12/14/2023 [id number] / / [id number] [employer] Cinchlock Ss Knotless Snubber Lock [place] Suture Labrum [id number] - [id number] Implanted:Qty: 1 on 10/03/2022 by Elva Kramer MD at [facility] Right: Hip [employer] 12/14/2023 [id number] / / [id number] Explanted Type Area Shuttle Final Inspector Device Identifier Shelf Expiration Date Model / Serial / Lot [employer] Xbraid 1.2mm Suture Nonabsorbable Titanium Uhmwpe Nonsterile [id number] - [id number] Explanted:Qty: 1 on 10/03/2022 at [facility] Right: Hip [facility] [facility] [id number] / / Description:Item built in Ep ic as implant. Added to this screen to correct charge on supply screen [phone] [phone]* Insurance [facility] PL[facility] PLUS Member Subscriber Plan / Payer (Ef fective 2021-Present) Name:Ines John Relation to Subscriber:Self Name:Ines John Payer ID:[id number] (NAIC) Type:[facility] H[facility]/PPO Address: [place] [id number] [place] [id number] Care Teams Technology Integration Specialist Relationship Specialty Start Date End Date Jigna Penaloza NP [address] [place] [address] PCP - General Internal Medicine 08/11/23
--- OUTSIDE RECORDS SUMMARY | 2024-11-11 09:02 | XMS_ITS | Clinical Summary ---
Author Organization [facility] Address [place] [address] Care Team Providers Care Four Slide Machine Operator Name Role Phone Jigna Penaloza NP Primary Care Provider [phone] Allergies Active Allergy Reactions Criticality Noted Date [...] 08/11/2023 Assessment & Plan (08/11/2023 1:43 PM ELECTRONIC EQUIPMENT REPAIRER): Discussed the patients BMI: The BMI is above average BMI management is complete. BMI follow-up includes: Nutrition Counseling and education provided Physical exam, annual 08/11/2023 Acquired hypothyroidism 08/11/2023 Attention deficit hyperactiv ity disorder (ADHD), predominantly inattentive type 08/11/2023 Cough 12/16/2022 Femoroacetabular impingement of right hip 2022 Overview (08/30/2022): Added automatically from request for surgery [id number] Labral tear of hip, degenerative 08/30/2022 Overview (08/30/2022): Added automatically from request for surgery [id number] Polycystic ovary syndrome 11/08/2021 Vitamin B12 deficiency [...] vative Free, Intramuscular 05/10/2017 Influenza, Unspecified 07/12/2023 Surgical History Surgery Date Site/Laterality Comments IR FINE NEEDLE ASPIRATION W IMAGE GUIDANCE 11/16/2015 N/A IR FINE NEEDLE ASPIRATION W IMAGE GUIDANCE 11/16/2015 N/A SINUS SURGERY 12/2008 KNEE ARTHROSCOPY 08/03/1997 - 08/30/1997 Left KNEE SURGERY 08/03/1999 - 08/31/1999 Bilateral alignment TUBAL LIGATION 12/31/2020 - 01/30/2021 Medical History Medical History Date Comments ADHD (attention deficit hyperactivity disorder) Depression Thyroid disease PONV (postoperative nausea and vomiting) Family History Medical History Relation Name Comments Arthritis Father Arthritis Mother Cancer Other 1 Family history of Cancer, unknown; Arthritis Other 2 Family history of Arthritis; Hypertension Other 3 Family history of Hypertension; Blood Clot Other 4 Family history of Blood clots; Lung disease Other 5 Family history of Lung problems; Diabetes Other 6 Family history of Diabetes mellitus; Anesthesia problems Neg Hx Relation Name Status Comments Father Mother Other 1 Other 2 Other 3 Other 4 Other 5 Other 6 Social History Tobacco Use Types Packs/Day Years [...] on file Legal Sex Female 3:30 AM ELECTRONIC EQUIPMENT REPAIRER Gender Identity Not on file Sexual Orientation Not on file 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 on file Not on file Not on file Obstetrics History Last Filed Vital Signs Vital Sign Reading Time Taken Comments Blood Pressure 110/80 08/11/2023 1:35 PM ELECTRONIC EQUIPMENT REPAIRER Pulse 100 08/11/2023 1:35 PM ELECTRONIC EQUIPMENT REPAIRER Temperature 36.8 C (98.3 F) 08/11/2023 1:35 PM ELECTRONIC EQUIPMENT REPAIRER Respiratory Rate 25 10/03/2022 10:20 AM CDT Oxygen Saturation 97% 08/11/2023 1:35 PM ELECTRONIC EQUIPMENT REPAIRER Inhaled Oxygen Concentration - - Weight 74.4 kg (164 lb) 08/11/2023 1:35 PM ELECTRONIC EQUIPMENT REPAIRER Height 154.9 cm (5' 1 ) 08/11/2023 1:35 PM ELECTRONIC EQUIPMENT REPAIRER Body Mass Index 30.99 08/11/2023 1:35 PM ELECTRONIC EQUIPMENT REPAIRER Plan of Treatment Health Maintenance Due Date Last Done Comments Breast Cancer Screening-Mammogram 1981 Cervical Cancer Screening 1981 Hepatitis C Screening 1981 DTaP/Tdap/Td Vaccine (1 - Tdap) 1992 Varicella Vaccines (1 of 2 - 13+ 2-dose series) 1994 Hepatitis B Screening 1999 Covid-19 Vaccine ( season) 2024 05/07/2021, 09/01/2020, 07/30/2020 Depression Screening 08/11/2024 08/11/2023 Regular Well Visit/Exam 18-64 08/11/2024 08/11/2023 Influenza Vaccine (Season Ended) 2025 07/12/2023, 07/12/2023, 03/30/2022, Additional history exists HPV Vaccines Aged Out No longer eligi ble based on patient's age to complete this topic Pneumococcal vaccine <65 Aged Out No longer eligible based on patient's age to complete this topic Medical Devices Implanted Type Area Coal Trammer Device Identifier Shelf Expiration Date Model / Serial / Lot [employer] Cinchlock Ss Knotless Physiologist Lock [place] Suture Labrum [id number] - [id number] Implanted:Qty: 1 on 10/03/2022 by Elva Kramer MD at [facility] Right: Hip [employer] 10/19/2022 [id number] / / [id number] [employer] Cinchlock Ss Knotless Physiologist Lock [place] Suture Labrum [id number] - [id number] Implanted:Qty: 1 on 10/03/2022 by Elva Kramer MD at [facility] Right: Hip [facility] 12/14/2023 [id number] / / [id number] [employer] Cinchlock Ss Knotless Physiologist Lock Ward Suture Labrum [id number] - [id number] Implanted:Qty: 1 on 10/03/2022 by Elva Kramer MD at [facility] Right: Hip [facility] 12/14/2023 [id number] / / [id number] Explanted Type Area Coal Trammer Device Identifier Shelf Expiration Date Model / Serial / Lot [employer]oscopy Xbraid 1.2mm Suture Nonabsorbable Titanium Uhmwpe Nonsterile [id number] - [id number] Explanted:Qty: 1 on 10/03/2022 at [facility] Right: Hip [facility] [id number] / / Description:Item built in Ep ic as implant. Added to this screen to correct charge on supply screen [id number] [id number]* Insurance [facility] CHO[facility] PLUS [facility] PLUS [facility] PLUS Care Teams Four Slide Machine Operator Relationship Specialty Start Date End Date Jigna Penaloza NP [address] [facility] [address] [place] [address] PCP - General Internal Medicine 08/11/23
--- OUTSIDE RECORDS SUMMARY | 2024-11-11 09:02 | XMS_ITS | Encounter Summary ---
Author Organization [facility] Address [address] [place] [address] Care Team Providers Care Ict Analyst Name Role Phone Lucinda Cummings MD Primary Care Provider Unavailable Flavia Torrez MD Primary Care Provider [phone] Encounter Details Date Type Department Care Team (Late st Contact Info) Description 05/06/2017 Abstract [place] [address] Lucinda Cummings MD Social History Tobacco Use Types Packs/Day Years Used Date Smoking Tobacco: Never Assessed Comments Unknown Sex and Gender Information Value Date Recorded Sex Assigned at Not on file Legal Sex Female 6:20 PM CDT Gender Identity Not on file Sexual Orientation Not on file documented as of this encounter Plan of Treatment Not on file documented as of this encounter Visit Diagnoses Not on filedocumented in this encounter Care Teams Ict Analyst Relationship Specialty Start Date End Date Lucinda Cummings MD PCP - General 11/22/14 Flavia Torrez MD [address] [place] [address] [place] [address] PCP - General FAMILY PRACTICE 05/10/22 documented as of this encounter
--- OUTSIDE RECORDS SUMMARY | 2024-11-11 09:02 | XMS_ITS | Encounter Summary ---
Author Organization [facility] Address [address] [place] [address] Care Team Providers Care Appliance Repairer Name Role Phone Flavia Torrez MD Primary Care Provider [phone] Encounter Details Date Type Department Care Team (Late st Contact Info) Description 11/24/2022 XOR.MOTORS Message [facility] Patient Accounts [address] [place] [address] [facility] Action Needed Social History Tobacco Use Types Packs/Day Years [...] on filedocumented in this encounter Care Teams Appliance Repairer Relationship Specialty Start Date End Date Flavia Torrez MD [address] [place] [address] [place] [address] PCP - General FAMILY PRACTICE 05/10/22 documented as of this encounter
--- OUTSIDE RECORDS SUMMARY | 2024-11-11 09:02 | XMS_ITS | Data Portability ---
Author Organization [facility] [address], Main Office Address [address] [place] [address] Assessment No assessment recorded. Plan of Treatment Reminders Order Date Submit Date Provider Last Modified By Organization Details Last Modified Time Details Appointments None recorded. Lab vitamin D, 25-hydroxy, total, serum [address] (Lab), [address] [place] [address], [id number], 4 08:08:49 drug of abuse panel, urine 2023 024 [facility] (Lab), [address] [place] [address], [id number], 4 19:33:29 CBC w/ auto diff [address] (Lab), [address] [place] [address], [id number], 4 08:08:48 CMP, serum or plasma [address] (Lab), [address] [place] [address], [id number], 4 08:08:48 lipid panel, serum [address] (Lab), [address] [place] [address], [id number], 4 08:08:48 HbA1c (hemoglobin A1c), blood 2023 [email or web address] [place] [address] ([facility]), [address] [place] [address], [place], [phone], 4 08:08:48 Referral None recorded. Procedures None recorded. Surgeries None recorded. Imaging None recorded. Medication Orders bupropion HCl XL 300 mg 24 hr tablet, extended release 2024 025 [facility], [address] [place] [address], [address], 5 08:45:46 dextroamphe tamine-amph etamine ER 30 mg 24hr capsule,ext end release 2023 024 [facility] 2425, [address] [facility], [facility], [place], [address], 4 08:44:56 metformin ER 500 mg tablet,exte nded release 24 hr 2022 [email or web address] [place] [address] 2425, [address] [facility], [facility], [place], [address], 4 08:52:42 spironolact one 50 mg tablet 2022 023 [facility] 2425, [address] [facility], [facility], [place], [address], 3 12:08:47 metformin ER 500 mg tablet,exte nded release 24 hr 2022 023 [email or web address] [employer] [facility], [address] [place] [address], [address], 4 08:52:42 spironolact one 50 mg tablet 2022 023 [facility], [address] [place] [address], [address], 3 12:09:49 Synthroid 88 mcg tablet 2022 023 [email or web address] [facility], [address], [address], [place], [address], 4 08:53:00 Patient TargetsNo targets recorded. Patient InstructionsNo instructions recorded. Reason for Referral None Reported. Results Created Date Observation Date Name Description Value Unit Range Abnormal Flag Note LastModifiedBy Organization Detail LastModifiedTime 03/14/20 23 03/14/2023 MAMMO , scree hugo, digit al, bilat eral No observ ation record ed. [email or web address] [facility] [address] [facility] [address], [place], [address], 03/15/2023 09:07:31 Result Notes None recorded. Problems Name Problem SNOMED Code Status Onset Date Resolution Date Notes Provider Name and Address Organization Details Recorded Time Attention deficit hyperactiv ity disorder 322273327 Active 2022 MARIA LUISA Hart [address], [place], [address] , [employer] 3 10:06:32 Cough 91571827 Active 2022 MARIA LUISA Hart [address], [place], [address] , [employer] 3 10:06:28 Elevated blood-pres sure reading without diagnosis of hypertensi on 411498031 Active 2023 ESTRELLA Najera [address], [place], [address] , [employer] 4 08:41:30 Numbness and tingling sensation of skin 181788232690 Active 2017 Not Available [employer] 3 04:49:22 Urinary incontinen ce 244315442 Active 2017 Not Available [facility] 3 04:49:22 Adjustment disorder 30484424 Active Not Available [facility] 3 04:49:22 Allergic rhinitis caused by pollen 32386107 Active Not Available [facility] 3 04:49:22 Polycystic ovary syndrome 073223915 Active 2021 Not Available [facility] 3 04:49:22 Thyroid nodule 078534570 Active Not Available [facility] 3 04:49:22 Poor concentrat ion 86618965 Active 2018 Not Available [facility] 3 04:49:23 Vitamin D deficiency 88771252 Active Not Available [facility] 3 04:49:23 Goiter 7655789 Active 2021 Not Available [facility] 3 04:49:23 Hypothyroi dism 43118268 Active 2021 Not Available [facility] 3 04:49:23 Vitamin B12 deficiency (non anemic) 06624963 Active 2021 Not Available [facility] 3 04:49:23 Problem Notes Documentation Provider Name and Address Organization Details Recorded Time [facility]ocrinology Consult Note : [facility] [address], [facility] [address]MYEKGI, Stacy A (id #[id number], : 1980) Documents sent via fax will include the following message: This fax may contain sensitive and confidential personal health information that is being sent for the sole use of the intended recipient. Unintended recipients are directed to securely destroy any materials received. You are hereby notified that the unauthorized disclosure or other unlawful use of this fax or any personal health information is prohibited. To the extent patient information contained in this fax is subject to 42 CFR Part 2, this regulation prohibits unauthorized disclosure of these records. If you received this fax in error, please visit [email or web address] to notify the sender and confirm that the information will be destroyed. If you do not have internet access, please call to notify the sender and confirm that the information will be destroyed. Thank you for your attention and cooperation. [ID:[id number]][facility] [address] [place] [address] , Date: 04/04/2023RE: Ines Montiel, : 1980, PT ID #[id number] Osmel GLASS, I would like to thank you for referring Ines Montiel to our practice for consultation and evaluation of FU ON LABS , on 04/04/2023. I have enclosed a copy of the office evaluation for your records. Once again, thank you for allowing me to participate in the care of this patient. Sincerely, Electronically Signed by: NURYS PEREZ MD Encounter Reason/Date FU ON LABS 04/04/2023 - 11:00AM - [facility] [place] Problems:Problems not reviewed (last reviewed 12/16/2022) Goiter - Onset: 11/08/2021 Thyroid nodule Hypothyroidism - Onset: 11/08/2021 Vitamin B12 deficiency (non anemic) - Onset: 11/08/2021 Vitamin D deficiency Adjustment disorder Attention deficit hyperactivity disorder - Onset: 10/24/2022 Allergic rhinitis due to pollen Numbness and tingling sensation of skin - Onset: 06/08/2018 Cough - Onset: 12/16/2022 Urinary incontinence - Onset: 06/08/2018 Poor concentration - Onset: 11/28/2018 Polycystic ovary syndrome - Onset: 11/08/2021 Allergies: Reviewed Allergies AMOXICILLIN: Rash LEVAQUIN: Dizziness Medications: Reviewed Medications NameDate Source BD Insulin Syringe Ultra-Fine 1 mL 31 gauge x 11/15 USE TO INJECT B12 EVERY WEEK IN [place] XCKTVHVO39/29/21 filled MIGRATION.[id number] buPROPion HCL XL 300 mg 24 hr tablet, extended releaseTAKE 1 TABLET BY MOUTH EVERY DAY01/17/23 filled surescripts dextroamphetamine-amphetami ne ER 15 mg 24hr capsule,extend releaseTake 2 capsule(s) every day by oral route for 30 days.04/03/23 filled surescripts DULoxetine 60 mg capsule,delayed releaseTK 1 C PO QD02/21/23 filled surescripts EQ STL SFT ST LAX 8.6-50MG TABTAKE 1 TO 2 TABLETS BY MOUTH TWICE DAILY09/26/22 filled surescripts insulin syringe U-100 with needle 0.5 mL 31 gauge x 516 09/21/22 filled MIGRATION.[id number] metFORMIN ER 500 mg tablet,extended release 24 hrTAKE 1 TABLET BY MOUTH ONCE DAILY WITH DINNER x 90 days04/04/23 prescribed Nurys Perez MD spironolactone 50 mg tabletTAKE 2 TABLETS BY MOUTH EVERY DAY IN THE TYJYLNL88/03/23 prescribed Nurys Perez MD Synthroid 88 mcg tabletTake 1 tablet(s) every day by oral route as directed for 90 days.04/04/23 prescribed Nurys Perez MD Zyr[facility] started MIGRATION.[id number] Family History: Father - Hypertensive disorder - Polycythemia vera (clinical) Brother - Hypertensive disorder Mother - Disorder of thyroid gland no breast, colon, ovary Social History:Substance UseDo you or have you ever smoked tobacco?: Never smokerWhich illicit or recreational drugs have you used?: noneDo you or have you ever used any other forms of tobacco or nicotine?: NoDo you or have you ever used e-cigarettes or vape?: Never used electronic cigarettesDo you or have you ever used smokeless tobacco?: Never used smokeless tobaccoHow much tobacco do you chew?: noneWhat is your level of alcohol consumption?: NoneWhat is your level of caffeine consumption?: ModeratePublic Health and TravelIn the 14 days before symptom onset, have you had close contact with a laboratory-confirmed COVID-19 while that case was ill?: NoIn the 14 days before symptom onset, have you had close contact with a person who is under investigation for COVID-19 while that person was ill?: NoEducation and 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 we continued spironolactone and metformin. She has lost over 10 pounds and 4 pounds since last visit. She has been out of her metformin for a few days. She was not fasting on her bloodwork and completed at noon. Cycles are overall normal and no new concerns. labs from 03/25:TSH of 0.287 uIU/mlglucose 98 mg/dLCr normalLFT normaldheas 543 ug/ml but nonfastingReview of Systems:ROS as noted in the HPIPhysical ExamConstitutional:General Appearance: healthy-appearing, well-nourished, well-developed, not anxious/nervous, and no sweating. Level of Distress: no acute distress. Eyes:Lids and Conjunctivae: no discharge, pallor, lid lag, or periorbital edema and non-injected. Neck:Neck: supple, trachea midline, no masses, and full range of motion. Thyroid: no enlargement or nodules and non-tender. Neck vessels: no carotid bruits or thyroid bruits. Lymph Nodes: no anterior cervical LAD, posterior cervical LAD, submandibular LAD, submental LAD, preauricular LAD, or supraclavicular LAD. Cardiovascular:Apical Impulse: not displaced. Heart Auscultation: normal S1 and S2; no murmurs, rubs, or gallops; and regular rate and rhythm. Lungs:Auscultation: no wheezing, rales/crackles, or rhonchi and breath sounds normal, good air movement, and clear to auscultation. Psychiatric:Mental Status: normal mood and affect, no diffuse anxiety or paranoid ideations, and active and alert.Procedure DocumentationNone recordedAssessment/Plan1. Polycystic ovary syndrome-Insulin and fasting glucose in range- her labs were actually drawn later in day- testosterone pending and dheas not reliable due to inadequate timing. Continue on metformin for insulin sensitization. Continue spironolactone as patient tolerating well and she has good energy and no concerns of hair loss or hirsutism at this time.E28.2: Polycystic ovarian syndrome metformin ER 500 mg tablet,extended release 24 hr - TAKE 1 TABLET BY MOUTH ONCE DAILY WITH DINNER x 90 days Qty: (90) tablet Refills: 3 Pharmacy: [facility] 9977 spironolactone 50 mg tablet - TAKE 2 TABLETS BY MOUTH EVERY DAY IN THE MORNING Qty: (180) tablet Refills: 3 Pharmacy: [facility] 8874 metformin ER 500 mg tablet,extended release 24 hr - TAKE 1 TABLET BY MOUTH ONCE DAILY WITH DINNER x 90 days Qty: (90) tablet Refills: 3 Pharmacy: [facility] spironolactone 50 mg tablet - TAKE 2 TABLETS BY MOUTH EVERY DAY IN THE MORNING Qty: (180) tablet Refills: 3 Pharmacy: [facility] 2. Hypothyroidism-TSH and FT4 in range- continue on synthroid 88 mcg daily. She was reminded to take her synthroid on empty stomach with glass of water and wait one hour to eat or have her coffee in morning and up to 4 hours if ever taking any heartburn or reflux medications to help optimize absorption. Discussed paleo like diet with restriction of GMOs to help with energy and to optimize absorption of vitamins and minerals and reduce inflammation. Spent up to 25 minutes preparing to see the patient (eg, review of tests), obtaining and/or reviewing separately obtained history, performing a medically appropriate examination and evaluation, counseling and educating the patient, ordering medications, tests, along with documenting clinical information in the electronic health record, independently interpreting results and communicating results to the patient. Patient can be followed by PCP - she/he is aware of my resignation and last day of April 14. If needed his/her PCP can refer patient to another rail loader in the area. All questions /concerns answered and refills necessary at visit today.E03.9: Hypothyroidism, unspecified Synthroid 88 mcg tablet - Take 1 tablet(s) every day by oral route as directed for 90 days. Qty: (90) tablet Refills: 3 Pharmacy: [facility] Return to Office Patient will return to the office as needed HEMAL Velez, [employer] 04/05/2023 09:43:24 Procedures Surgical History Date Name Laterality Status Provider Name and Address Organization Details Recorded Time Hip surgery completed Lara Castellanos RN [employer] 04/04/2023 11:55:05 Knee completed Not Available Count includes the [facility] 07/2022 04:41:57 ligation of bilateral fallopian tubes completed Not Available [facility] 08/31/2022 04:41:57 Sinus Surgery completed Not Available [facility] 08/31/2022 04:41:57 Imaging Results Imaging Date Name Status LastModified by Organiz ation Details LastModified Time 03/14/2023 MAMMO, screening, digital, bilateral completed [email or web address] [facility] [address], [place], [address], 03/15/2023 09:07:31 Procedure Notes None recorded. Medical Equipment None Reported. Allergies Allergen ID Allergen Name Allergen Category Reaction Reaction Severity Criticality Documentation Date Start Date Code Code System Note Provider Name and Address Organization Details Recorded Time 7382 Levaquin medicatio n dizziness Not available Not available 08/31/2022 90513 2 RxNorm Not Available Count includes the [facility] 3 05:00:35 7383 amoxicill in medicatio n rash Not available Not available 08/31/2022 723 RxNorm Not Available Count includes the [facility] 3 05:00:35 Medications Name Sig Start Date Stop Date Status Note LastModified by Organization Details LastModified Time eq stl sft st lax 8.6-50mg tab TAKE 1 TO 2 TABLETS BY MOUTH TWICE DAILY 09/17 completed Not Available Not Available Not Available amoxicill in 500 mg capsule TAKE ONE CAPSULE BY MOUTH EVERY 6 HOURS 03/30 completed Not Available Not Available Not Available doxycycli ne hyclate 100 mg capsule TAKE 1 CAPSULE BY MOUTH IN THE MORNING AND AT BEDTIME FOR 10 DAYS TAKE WITH AT LEAST 8 OUNCES OF WATER, DO NOT LIE DOWN FOR 30 MINUTES AFTER 07/22 completed Not Available Not Available Not Available benzonata te 200 mg capsule Take 1 capsule 3 times a day by oral route as needed. 04/04 completed Not Available Not Available Not Available hydrocodo ne 5 mg-acetam inophen 325 mg tablet TK 1 T PO Q 4 H PRF PAIN active Not Available Not Available No t Available phenazopy ridine 200 mg tablet 10/10 completed Not Available Not Available Not Available metronida zole 0.75 % (37.5 mg/5 gram) vaginal gel 12/24 completed Not Available Not Available Not Available ondansetr on HCl 4 mg tablet TAKE 1 TABLET BY MOUTH EVERY 6 HOURS NEEDED FOR NAUSEA OR VOMITING 04/04 completed Not Available Not Available Not Available prednison e 20 mg tablet 3 po qday x 3 days then 2 po qday x 3 days then 1 po qday x 3 days then 1/2 tab po qday x 3 days then stop active Not Available Not Available No t Available dextroamp hetamine- amphetami ne 10 mg tablet Take 1 tablet every day by oral route. 04/16 completed Not Available Not Available Not Available ciproflox acin 500 mg tablet 10/10 completed Not Available Not Available Not Available aspirin 81 mg tablet,de layed release TAKE 1 TABLET BY MOUTH TWICE DAILY FOR 30 DAYS AFTER SURGERY 04/04 completed Not Available Not Available Not Available dextroamp hetamine- amphetami ne 30 mg tablet TAKE 1 TABLET BY MOUTH EVERY DAY 04/04 completed Not Available Not Available Not Available meloxicam 7.5 mg tablet 05/12 completed Not Available Not Available Not Available oxycodone -acetamin ophen 5 mg-325 mg tablet TAKE 1 TABLET BY MOUTH EVERY 6 HOURS NEEDED FOR PAIN 04/04 completed Not Available Not Available Not Available tamsulosi n 0.4 mg capsule 05/12 completed Not Available Not Available Not Available dextroamp hetamine- amphetami ne ER 20 mg 24hr capsule,e xtend release TAKE 1 CAPSULE BY MOUTH EVERY DAY DIRECTED active Not Available Not Available No t Available dexametha sone 1 mg tablet TK 1 T PO AT 10 PM BEFORE 8 AM CORTISOL active Not Available Not Available No t Available paroxetin e 30 mg tablet Take 1 tablet every day by oral route for 90 days. 04/25 completed Not Available Not Available Not Available paroxetin e 20 mg tablet 04/25 completed Not Available Not Available Not Available cyanocoba anthony (vit B-12) 1,000 mcg/mL injection solution ADMINIST ER 1 ML UNDER THE SKIN EVERY OTHER WEEK IN THE MORNING 04/04 completed Not Available Not Available Not Available buspirone 10 mg tablet Take 1 tablet twice a day by oral route as needed for 30 days. active Not Available Not Available No t Available dextroamp hetamine- amphetami ne 20 mg tablet Take 1 tablet every day by oral route. 06/04 completed Not Available Not Available Not Available Synthroid 88 mcg tablet TAKE 1 TABLET DAILY 2023 active Not Available Not Available Not Avai lable Synthroid 75 mcg tablet Take 1 tablet every day by oral route in the morning for 30 days. 03/30 completed Not Available Not Available Not Available Synthroid 50 mcg tablet TAKE 1 TABLET EVERY DAY IN THE MORNING 11/08 completed Not Available Not Available Not Available dextroamp hetamine- amphetami ne ER 10 mg 24hr capsule,e xtend release TAKE 1 CAPSULE BY MOUTH EVERY DAY active Not Available Not Available No t Available alprazola m 2 mg tablet TAKE 1 TABLET BY MOUTH 1 HOUR PRIOR TO PROCEDUR E 05/31 completed Not Available Not Available Not Available lorazepam 1 mg tablet 04/04 completed Not Available Not Available Not Available oxycodone -acetamin ophen 7.5 mg-325 mg tablet TAKE 2 TABLETS BY MOUTH ONE HOUR PRIOR TO PROCEDUR E 05/31 completed Not Available Not Available Not Available scopolami ne 1 mg over [address] patch [address] 1 PATCH ON THE SKIN BEHIND THE EAR 1 DAY PRIOR TO SURGERY 04/04 completed Not Available Not Available Not Available Vitamin D2 1,250 mcg (50,000 unit) capsule TK 1 C PO ONCE A WEEK WITH A LARGE MEAL 10/10 completed Not Available Not Available Not Available dexametha sone 0.5 mg tablet TAKE 2 TABLETS BY MOUTH AT 11 PM AND GO FOR BLOOD TEST IN THE MORNING AT 8 AM 09/17 completed Not Available Not Available Not Available dextroamp hetamine- amphetami ne ER 30 mg 24hr capsule,e xtend release TAKE 1 CAPSULE BY MOUTH EVERY DAY 2024 active Not Available Not Available Not Avai lable fluticaso ne propionat e 50 mcg/actua tion nasal spray,[facility] [place] 1 spray every day by intranas al route. 04/04 completed Not Available Not Available Not Available metformin ER 500 mg tablet,ex tended release 24 hr TAKE 1 TABLET BY MOUTH ONCE DAILY WITH DINNER x 90 days 03/20 completed pt states medicati on made her sick Not Available Not Available Not Available insulin syringe U-100 with needle 0.5 mL 31 gauge x 5/16 09/17 completed Not Available Not Available Not Available naproxen 500 mg tablet TAKE 2 TABLETS BY MOUTH WITH BREAKFAS T THE DAY BEFORE SURGERY, THEN TAKE ONE TAB TWICE A DAY FOR 14 DAYS AFTER SURGERY 04/04 completed Not Available Not Available Not Available spironola ctone 50 mg tablet TAKE 2 TABLETS DAILY IN THE MORNING 2023 active Not Available Not Available Not Avai lable amoxicill in 875 mg-potass ium clavulana te 125 mg tablet TAKE 1 TABLET BY MOUTH EVERY 12 HOURS FOR 10 DAYS 01/22 completed Not Available Not Available Not Available dextroamp hetamine- amphetami ne ER 15 mg 24hr capsule,e xtend release TAKE 1 CAPSULE BY MOUTH IN THE MORNING 03/20 completed Not Available Not Available Not Available aripipraz ole 5 mg tablet TK 1 T PO QD active Not Available Not Available No t Available bupropion HCl XL 300 mg 24 hr tablet, extended release TAKE 1 TABLET DAILY 2024 active Not Available Not Available Not Avai lable bupropion HCl XL 150 mg 24 hr tablet, extended release TAKE 1 TABLET BY MOUTH DAILY FOR 7 DAYS THEN SWITCH TO THE 300MG TABLETS 05/31 completed Not Available Not Available Not Available metformin ER 500 mg tablet,ex tended release 24hr (osmotic) Take 1 tablet twice a day by oral route with meals for 30 days. 10/23 completed Not Available Not Available Not Available duloxetin e 20 mg capsule,d elayed release TK 1 C PO QD 04/25 completed Not Available Not Available Not Available duloxetin e 30 mg capsule,d elayed release TK 1 C PO QD 05/12 completed Not Available Not Available Not Available duloxetin e 60 mg capsule,d elayed release TAKE 1 CAPSULE DAILY 2024 active Not Available Not Available Not Avai lable Boostrix Tdap 2.5 Lf unit-8 mcg-5 Lf/0.5 mL intramusc ular syringe TO BE ADMINIST ERED BY PHARMACI ST FOR IMMUNIZA TION 04/29 completed Not Available Not Available Not Available naproxen 500 mg 04/04 completed Not Available Not Available Not Available Zyrtec 2019 active Not Available Not Available Not Avai lable Vyvanse 40 mg capsule Take 1 capsule every day by oral route. 04/04 completed Not Available Not Available Not Available bupropion HCl XL 450 mg 24 hr tablet, extended release TAKE 1 TABLET BY MOUTH EVERY DAY 04/25 completed Not Available Not Available Not Available BD Insulin Syringe Ultra-Fin e 1 mL 31 gauge x 5/16 USE TO INJECT B12 EVERY WEEK IN [facility] DIRECTED 09/17 completed Not Available Not Available Not Available bupropion HCl 150 mg tablet,12 hr sustained -release( smoking deterrent ) Take 1 tablet twice a day by oral route. 10/02 completed Not Available Not Available Not Available Vitals Date Recorded Body height Body mass index (BMI) Body weight Respiratory rate Body temperature Heart rate Systolic blood pressure Diastolic blood pressure Provider Name and Address Organization Details Last Updated DateTime 3 154.94 cm 31.6 kg/m2 06672.9 3 g 14 /min 97.9 [degF] 85 /min 122 mm[Hg] 88 mm[Hg] Lara Castellanos RN [facility] 3 11:53:29 Date Recorded Body height Body mass index (BMI) Body weight Body temperature Oxygen saturation Oxygen saturation in Arterial blood by Pulse oximetry Heart rate Systolic blood pressure Diastolic blood pressure Provider Name and Address Organization Details Last Updated DateTime 4 154.94 cm 31.6 kg/m2 48090.9 3 g 96.8 [degF] 99 % 99 % 85 /min 130 mm[Hg] 86 mm[Hg] Lay Cook RN [facility] 4 09:27:19 Date Recorded Body height Body mass index (BMI) Body weight Body temperature Heart rate Oxygen saturation Oxygen saturation in Arterial blood by Pulse oximetry Systolic blood pressure Diastolic blood pressure Provider Name and Address Organization Details Last Updated DateTime 4 154.94 cm 31.2 kg/m2 61384.7 4 g 98 [degF] 76 /min 98 % 98 % 120 mm[Hg] 84 mm[Hg] Eze Caldwell RN [employer] 4 08:52:11 Date Recorded Body height Body mass index (BMI) Body weight Body temperature Heart rate Oxygen saturation Oxygen saturation in Arterial blood by Pulse oximetry Provider Name and Address Organization Details Last Updated DateTime 4 154.94 cm 29.7 kg/m2 06384 g 97.7 [degF] 56 /min 98 % 98 % Eze Caldwell RN [facility] [employer] [facility] 4 08:34:22 Date Recorded Systolic blood pressure Diastolic blood pressure Provider Name and Address Organization Details Last Updated DateTime 06/19/2024 116 mm[Hg] 70 mm[Hg] WINTER Najera-Tee [address] [facility], [facility] [address], [place], [address], [facility] [employer] [facility] 06/19/2024 08:44:28 Date Recorded Body height Body mass index (BMI) Body weight Body temperature Heart rate Oxygen saturation Oxygen saturation in Arterial blood by Pulse oximetry Pain severity - 0-10 verbal numeric rating [Score] - Reported Systolic blood pressure Diastolic blood pressure Provider Name and Address Organization Details Last Updated DateTime 5 154.94 cm 29.3 kg/m2 34666.8 2 g 98 [degF] 89 /min 99 % 99 % 0 108 mm[Hg] 68 mm[Hg] Caren Spears MA [facility] [employer] [facility] 5 08:38:32 Social History Question Answer Notes LastModified by Organizat ion Details LastModified Time Tobacco Smoking Status Never Smoker Not Available [employer] 08/31/2022 04:15:22 What Is Your Level Of Caffeine Consumption? Moderate [id number] Information not available 08/31/2022 How Much Tobacco Do You Chew? None [id number] Information not available 08/31/2022 In The 14 Days Before Symptom Onset, Have You Had Close Contact With A Laboratory-confir med COVID-19 While That Case Was Ill? No [id number] Information not available 08/31/2022 In The 14 Days Before Symptom Onset, Have You Had Close Contact With A Person Who Is Under Investigation For COVID-19 While That Person Was Ill? No [id number] Information not available 08/31/2022 What Type Of Diet Are You Following? REGULAR [id number] Information not available 08/31/2022 Which Illicit Or Recreational Drugs Have You Used? None [id number].[id number] Information not available 08/31/2022 Have There Been Any Changes To Your Family Or Social Situation? No ajithky Information no t available 09/17/2024 Do You Use Insect Repellent Routinely? No Information not available 09/17/2024 Where Do You Live? [facility] Information not available 09/17/2024 What Was The Date Of Your Most Recent Tobacco Screening? 09/17/2024 Information not available 09/17/2024 Do You Have Any Pets? Yes Information not available 09/17/2024 What Is Your Relationship Status? Information not available 09/17/2024 Do You Use Your Seat Belt Or Car Seat Routinely? Yes Information not available 09/17/2024 Do You Have Smoke And Carbon Monoxide Detectors In Your Home? Yes Information not available 09/17/2024 Are You Passively Exposed To Smoke? No Information no t available 09/17/2024 Are There Any Smokers In Your House? No Information not available 09/17/2024 Do You Participate In Social Media? Yes Information not available 09/17/2024 Do You Use Sunscreen Routinely? No Information not available 09/17/2024 Have You Recently Traveled Abroad? No Information not available 09/17/2024 Are You Currently In School? No Information not available 09/17/2024 Do You Have Any Dietary Restrictions? No [id number].[id number] Information not available 08/31/2022 Sex: Unknown Functional Status Question Answer Note LastModified by Organizat ion Details LastModified Time Do you or have you ever used any other forms of tobacco or nicotine? No [id number] Information not available 08/31/2022 What is your level of alcohol consumption? None MIGRATION.[id number] Information not available 08/31/2022 Do you or have you ever used smokeless tobacco? Never used smokeless tobacco MIGRATION.[id number] 026 Information not available 08/31/2022 Are you currently employed? 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 Never used electronic cigarettes MIGRATION.[id number] 026 Information not available 08/31/2022 What is your exercise level? None [id number].[id number] Information not available 08/31/2022 Mental Status Question Answer Note LastModified by Organization D etails LastModified Time Do you feel stressed (tense, restless, nervous, or anxious, or unable to sleep at night)? [id number] Information not available 09/17/2024 Family History Relationship Description Onset Age of this Age Resolved Age Notes LastModified by Organization Details LastModified Time Father Hypertensive disorder [id number] Not available 08/31/2022 04:42:00 Father Polycythemia vera (clinical) frivastorres Not available 08:28:26 Brother Hypertensive disorder [id number] Not available 08/31/2022 04:42:00 Mother Disorder of thyroid gland [id number].[id number] Not available 08/31/2022 04:42:00 Notes:no breast, colon, ovar y Medical History Condition Response DEPRESSION (INCLUDING POST ) Y HYPOTHYROIDISM Y Gynecological History Statement/Question Response Date of LMP STIs/STDs N Dislike of Light during Menstrual Headac he N Current Control Method IUD Most Recent Mammogram Breast Problems none How many live births 1 Date of Last Mammogram 03/14/2023 Date of Last Colonoscopy Most Recent Bone Density Sexually Active? Y Menses Monthly Y Date of Last Pap Smear Desired Control Method IUD Discharge none Obstetrics History GPAL:G 1 P 1 0 0 1 Type Value Multiple Births 0 Full Term 1 Induced 0 Spontaneous 0 Premature 0 Living 1 Ectopics 0 Total 1 Immunizations Vaccine Type Date Status Note Provider Nam e and Address Organization Details Recorded Time SARS-COV-2 (COVID-19) vaccine, UNSPECIFIED 1 completed Not Available [facility] 08/31/2022 05:00:13 Influenza, split virus, quadrivalent, PF 2 completed Not Available [facility] 08/31/2022 05:00:13 Influenza, split virus, quadrivalent, PF 8 completed Not Available [facility] 08/31/2022 05:00:13 Influenza, split virus, quadrivalent, PF 1 completed Not Available [facility] 08/31/2022 05:00:13 Influenza, split virus, quadrivalent, PF 9 completed Not Available [facility] 08/31/2022 05:00:13 Influenza, split virus, quadrivalent, PF 4 completed ESTRELLA Tinajero [address] [facility], [facility] [address], [place], [address], [facility] [employer] 07/12/2023 09:53:41 Past Encounters Encounter ID Performer Location Encounter Start Date Encounter Closed Date Diagnosis/Indication Diagnosis SNOMED-CT Code Diagnosis ICD10 Code Diagnosis Note [id number] Nurys Perez MD [facility] [place] [address] [place] [address] 10/23/2020 00:00:00 10/23/2020 09:06:08 [id number] Nurys Perez MD [facility] [place] [address] [place] [address] 01/22/2021 00:00:00 01/22/2021 14:48:49 [id number] Flavia Torrez MD [facility] Primary [facility] [address] [place] [address] 02/03/2021 00:00:00 02/03/2021 18:16:46 [id number] Flavia Torrez MD [address] [place] [address] 03/18/2021 00:00:00 03/18/2021 22:48:30 [id number] Nurys Perez MD [facility] [place] [address] [place] [address] 05/31/2021 00:00:00 05/31/2021 10:52:51 [id number] Flavia Torrez MD [address] [place] [address] 07/23/2021 00:00:00 07/23/2021 15:34:07 [id number] [facility] [place] [address] [place] [address] 11/08/2021 00:00:00 11/08/2021 16:09:49 [id number] MARIA LUISA Hart [facility] Primary Care [place] [address] [place] [address] 12/10/2021 00:00:00 12/10/2021 11:33:56 [id number] MARIA LUISA Hart [facility] Primary Care [place] [address] [facility] [address] [place] [address] 03/30/2022 00:00:00 03/30/2022 13:16:12 [id number] Nurys Perez MD [facility] [place] [address] [place] [address] 05/09/2022 00:00:00 05/09/2022 13:12:15 [id number] MARIA LUISA Hart [facility] Primary Care [place] [address] [facility] [address] [place] [address] 07/22/2022 00:00:00 07/22/2022 11:12:11 [id number] Flavia Torrez MD [facility] Primary Care [place] [address] [facility] [address] [place] [address] 12/16/2022 09:45:21 12/16/2022 10:33:37 Attention deficit hyperactivity disorder 035206759 F90.9 Stable. Continue dextroamph etamine-am phetamine 30mg daily. No refill needed today.Pt denies any lending, selling, or borrowing of medication s.UDS updated today. Long-term drug therapy 603900368 Z79.899 Cough 57105931 R05.9 Post-nasal drainage.W ill start daily flonase, continue daily allergy pill. [id number] Nurys Perez MD [facility] [place] [address] [place] [address] 04/04/2023 11:46:06 04/04/2023 12:46:17 Polycystic ovary syndrome 609503832 E28.2 Insulin and fasting glucose in range- her labs were actually drawn later in day- testostero ne pending and dheas not reliable due to inadequate timing. Continue on metformin for insulin sensitizat ion. Continue spironolac tone as patient tolerating well and she has good energy and no concerns of hair loss or hirsutism at this time. Hypothyroidism 75092095 E03.9 TSH and FT4 in range- continue on synthroid 88 mcg daily. She was reminded to take her synthroid on empty stomach with glass of water and wait one hour to eat or have her coffee in morning and up to 4 hours if ever taking any heartburn or reflux medication s to help optimize absorption . Discussed paleo like diet with restrictio n of GMOs to help with energy and to optimize absorption of vitamins and minerals and reduce inflammati on. Spent up to 25 minutes preparing to see the patient (eg, review of tests), obtaining and/or reviewing separately obtained history, performing a medically appropriat e examinatio n and evaluation , counseling and educating the patient, ordering medication s, tests, along with documentin g clinical informatio n in the electronic health record, independen tly interpreti ng results and communicat ing results to the patient. Patient can be followed by PCP - she/he is aware of my resignatio n and last day of April 14. If needed his/her PCP can refer patient to another endocrinol ogist in the area. All questions /concerns answered and refills necessary at visit today. [id number] ESTRELLA Tinajero [facility] Primary Care [address] [place] [address] 07/12/2023 09:20:18 07/12/2023 13:51:52 Attention deficit hyperactivity disorder 848419335 F90.9 -chronic, stable with use of dextro-amp hetamine 30mg-no complaints per pt-no refill needed today-Pt denies any lending, selling, or borrowing of medication s. Long-term drug therapy 883155956 Z79.899 UDS up to date Administra tion of influenza vaccine 12606721 Z23 [id number] ESTRELLA Najera [facility] Primary Care [facility] [address] [facility] [address] [place] [address] 03/20/2024 08:46:15 03/20/2024 09:11:51 Adult health examination 289479589 Z00.00 Discussed medication compliance and routine follow up.Discuss ed healthy diet and routine exercise.R pandaiewed vaccine records and made recommenda tions as needed.Enc ouraged annual eye and dental exams, as well as twice yearly dental cleanings. Will check screening labs as listed below.Mamm ogram scheduled in lonoscopy- age 46 Long-term drug therapy 965072634 Z79.899 Attention deficit hyperactivity disorder 595642195 F90.9 [place] obtained today.Wait ing for medical records from Jody Penaloza before restarting Adderall. Hypothyroidism 15699839 E03.9 patient follows endocrinol ogy-next appt in May. Vitamin D deficiency 347 49462 E55.9 [id number] ESTRELLA Najera [facility] Primary Care [address] [place] [address] 06/19/2024 08:27:35 06/19/2024 08:42:27 Attention deficit hyperactivity disorder 328534342 F90.9 Patient is doing well on current medication s, no concerns at this time. Will continue to refill and follow up every 3 months per [facility].[place] verified.U DS UTDlast fill: 06/04/24 Elevated blood-pressure reading without diagnosis of hypertension 458046620 R03.0 158/72 [id number] /70 recheck [id number] ESTRELLA Najera [facility] Primary Care [address] [place] [address] 09/17/2024 08:30:05 09/17/2024 08:47:02 Adjustment disorder 53415896 F43.20 Doing well on current medication s, no concerns at this time. Attention deficit hyperactivity disorder 420105440 F90.9 Doing well on current medication s, no concerns at this time. Hypothyroidism 99753913 E03.9 Follows endocrinol ogy, doing well at this time. Health Concerns Section Related Observation LastModified by Organization Detai ls LastModified Time None Recorded Concern Status LastModified by Organization Details LastModified Time None Recorded Advance Directives Directive None Recorded Payers Encounter Date Sequence Insurance Name Policy Number Policy Robbins Covered Member ID Robbins Member ID Guarantor Name 04/04/2023 1 [facility] [id number] Ines A Hartle [id number] Ines A Hartle 07/12/2023 1 [facility] [id number] Ines A Hartle [id number] Ines A Hartle 03/20/2024 1 [facility] [id number] Ines A Hartle [id number] Ines A Hartle 06/19/2024 1 [facility] [id number] Ines A Hartle [id number] Ines A Hartle 09/17/2024 1 [facility] [id number] Ines A Hartle [id number] Ines A Hartle Notes Date Note Type Note Provider Name and Address Organization Details Recorded Time 04/04/2023 text/html 42 yo female com es in for follow up in management of hypothyroidism and PCOS last seen in May at that time we continued synthroid 88 mcg daily. we continued spironolactone and metformin. She has lost over 10 pounds and 4 pounds since last visit. She has been out of her metformin for a few days. She was not fasting on her bloodwork and completed at noon. Cycles are overall normal and no new concerns. labs from 03/25:TSH of 0.287 uIU/mlglucose 98 mg/dLCr normalLFT normaldheas 543 ug/ml but nonfasting Nurys Perez MD [address], [place] [address], [place], [address], [employer] [facility] [employer] 04/04/2023 14:41:27 07/12/2023 text/html Pt is here for 6 month f/u ESTRELLA Tinajero [address], [facility] [address], [place], [address], [employer] 07/12/2023 09:56:43 03/20/2024 text/html Patient is a 43 year old female that presents to the office for annual wellness. Patient reports she is doing well and has no concerns at this time including chest pain and shortness of breath, nausea vomiting and diarrhea. Patient sees endocrinology at [place], follows up in May and is scheduled to have labs drawn in April. 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 This was last prescribed by Jigna Penaloza at [facility]. Patient states I went to see her when I couldn't get in here for an appointment . Discussed with patient that she cannot have two primary care providers-will obtain medical records. labs-orderedMammogra m- scheduled in - Octoberolonoscopy-age [id number] ap-aware ESTRELLA Najera [address], [address], [place], [address], [employer] 03/20/2024 11:51:11 06/19/2024 text/html Patient is a 44 year old female that presents to the office for 3 month follow up. Patient is doing well on current medications and has no concerns at this time including chest pain and shortness of breath. ESTRELLA Najera [address], [address], [place], [address], [employer] 06/19/2024 08:45:10 09/17/2024 text/html Patient is a 44 year old female that presents to the office for 3 month follow up. Patient is doing well on current medications and has no concerns at this time. ESTRELLA Najera [address], [address], [place], [address], [employer] 09/17/2024 08:48:48 OBGyn Episode No OBEpisode recorded.
[2024-11-11 09:30] LABS: Alanine Aminotransferase 16 U/L (6-35); Albumin Level 4.5 g/dL (3.5-5.1); Alkaline Phosphatase 65 U/L (38-126); Anion Gap 8 mmol/L (4-12); Aspartate Amino Transferase 26 U/L (14-36); Bilirubin,Total 0.6 mg/dL (0.2-1.3); Blood Urea Nitrogen 17 mg/dL (7-17); Calcium 9.4 mg/dL (8.4-10.2); Carbon Dioxide 28 mmol/L (22-30); Chloride 106 mmol/L (98-107); Estimated Glomerular Filt Rate > 60; Glucose 99 mg/dL (65-110); Potassium 4.2 mmol/L (3.4-5.0); Sodium 142 mmol/L (137-145)
[2024-11-11 10:04] LABS: Free T4 Free Thyroxine 0.69 ng/dL (0.78-2.19)
== END 2024-11-11 08:55 | disposition home or self-care (01) ==
LOC: ANHLAB 08:55
PROVIDERS: PCP Family Medicine; Visit Provider Internal Medicine Endocrinology, Diabetes & Metabolism
DX: E28.2 Polycystic ovarian syndrome (principal); E03.9 Hypothyroidism, unspecified; E04.1 Nontoxic single thyroid nodule
CPT/HCPCS: 36415; 80053; 84439; 84443

== ENCOUNTER 2025-01-13 14:37 | Outpatient (CLI) | payer OTHER, SELFPAY ==
--- NOTE | ~2025-01-13 | MM_ITS ---
EXAMINATION: MM screening gian BI w liliane HISTORY: Screening TECHNIQUE: Craniocaudal and mediolateral oblique 3-D tomosynthesis images were obtained and synthetic 2-D images were generated. CAD analysis was submitted and interpreted. COMPARISON: Comparison to multiple prior studies sequentially, with oldest reviewed study dated 11/11. BREAST PARENCHYMAL COMPOSITION: Dense: The breasts are heterogeneously dense, which may obscure small masses FINDINGS: There is a new small obscured mass in the central aspect of the right breast posterior to t he nipple, middle-posterior depth. Left breast is stable without evidence for malignancy. IMPRESSION: 1. New right breast mass. 2. Additional mammographic views and possible breast ultrasound are recommended. BI-RADS Category 0: Incomplete: Needs additional imaging evaluation. Reviewed, dictated and finalized at location B. IMPRESSION: 1. New right breast mass. 2. Additional mammographic views and possible breast ultrasound are recommended . BI-RADS Category 0: Incomplete: Needs additional imaging evaluation.
--- OUTSIDE RECORDS SUMMARY | 2025-01-13 14:42 | XMS_ITS | Clinical Summary ---
Author Organization [facility] Address [facility] [place] [address] Care Team Providers Care Traffic Circuit Engineer Name Role Phone Flavia Torrez MD Primary Care Provider Social History Tobacco Use Types Packs/Day Years [...] patient's age to complete this topic Insurance [facility] Care Teams Traffic Circuit Engineer Relationship Specialty Start Date End Date Flavia Torrez MD [address] [place] [address] [place] [address] PCP - General FAMILY PRACTICE 05/10/22
--- OUTSIDE RECORDS SUMMARY | 2025-01-13 14:42 | XMS_ITS | Encounter Summary ---
Author Organization [facility] Address [address] [place] [address] Care Team Providers Care Print Shop Assistant Name Role Phone Flavia Torrez MD Primary Care Provider [phone] Encounter Details Date Type Department Care Team (Late st Contact Info) Description 11/24/2022 [employer] Message [facility] Patient Accounts [address] [place] [address] [facility] Provider Action Needed Social History Tobacco Use [...] on filedocumented in this encounter Care Teams Print Shop Assistant Relationship Specialty Start Date End Date Flavia Torrez MD [address] [place] [address] [place] [address] PCP - General FAMILY PRACTICE 05/10/22 documented as of this encounter
--- OUTSIDE RECORDS SUMMARY | 2025-01-13 14:42 | XMS_ITS | Clinical Summary ---
Author Organization [facility] Address [facility] [place] [address] Care Team Providers Care Outside Plant Supervisor Name Role Phone Jigna Penaloza NP Primary Care Provider [phone] Allergies Active Allergy Reactions Criticality Noted Date [...] 08/11/2023 Assessment & Plan (08/11/2023 1:43 PM TARGET PROTECTION SPECIALIST): Discussed the patients BMI: The BMI is above average BMI management is complete. BMI follow-up includes: Nutrition Counseling and education provided Physical exam, annual 08/11/2023 Acquired hypothyroidism 08/11/2023 Attention deficit hyperactiv ity disorder (ADHD), predominantly inattentive type 08/11/2023 Cough 12/16/2022 Femoroacetabular impingement of right hip 2022 Overview (08/30/2022): Added automatically from request for surgery [id number] Labral tear of hip, degenerative 08/30/2022 Overview (08/30/2022): Added automatically from request for surgery [id number] Polycystic ovary syndrome 11/08/2021 Vitamin B12 deficiency [...] on file Legal Sex Female 3:30 AM [employer] PROTE[employer] SPECIALIST Gender Identity Not on file Sexual Orientation Not on file 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 on file Not on file Not on file Obstetrics History Last Filed Vital Signs Vital Sign Reading Time Taken Comments Blood Pressure 110/80 08/11/2023 1:35 PM [employer] PROTE[employer] SPECIALIST Pulse 100 08/11/2023 1:35 PM [employer]IST Temperature 36.8 C (98.3 F) 08/11/2023 1:35 PM [employer]ARGET PROTE[employer] SPECIALIST Respiratory Rate 25 10/03/2022 10:20 AM CDT Oxygen Saturation 97% 08/11/2023 1:35 PM TARGET PROTE[employer] SPECIALIST Inhaled Oxygen Concentration - - Weight 74.4 kg (164 lb) 08/11/2023 1:35 PM TARGET PROTE[employer] SPECIALIST Height 154.9 cm (5' 1) 08/11/2023 1:35 PM TARGET PROTE[employer] SPECIALIST Body Mass Index 30.99 08/11/2023 1:35 PM TARGET PROTECTION SPECIALIST Plan of Treatment Health Maintenance Due Date [...] this topic Medical Devices Implanted Type Area Snuff Maker Device Identifier Shelf Expiration Date Model / Serial / Lot [facility] [facility] [employer] Dana Suture Labrum [id number] - [id number] Implanted:Qty: 1 on 10/03/2022 by Elva Kramer MD at [facility] Right: Hip [facility] 10/19/2022 [id number] / / [id number] [facility] [employer] [facility] [employer] Dana Suture Labrum [id number] - [id number] Implanted:Qty: 1 on 10/03/2022 by Elva Kramer MD at [facility] Right: Hip [facility] 12/14/2023 [id number] / / [id number] [facility] [employer] [facility] Lock Dana Suture Labrum [id number] - [id number] Implanted:Qty: 1 on 10/03/2022 by Elva Kramer MD at [facility] Right: Hip [facility] 12/14/2023 [id number] / / [id number] Explanted Type Area Snuff Maker Device Identifier Shelf Expiration Date Model / Serial / Lot [facility] Xbraid 1.2mm Suture Nonabsorbable Titanium Uhm[employer]pe Nonsterile [id number] - [id number] Explanted:Qty: 1 on 10/03/2022 at [facility] Right: Hip [facility] [id number] / / Description:Item built in Ep ic as implant. Added to this screen to correct charge on supply screen [id number]* Insurance [facility] H[facility]/PPO Address: [place] [address] [facility] H[facility]/PPO Address: [id number] [place] [address] [facility] H[facility]/[place]: [place] [address] Care Teams Outside Plant Supervisor Relationship Specialty Start Date End Date Jigna Penaloza NP [address] [facility] [address] [place] [address] PCP - General Internal Medicine 08/11/23
--- OUTSIDE RECORDS SUMMARY | 2025-01-13 14:42 | XMS_ITS | Referral Summary ---
Author Organization [facility] Address [facility] [place] [address] Care Team Providers Care Clinical Radiologist Name Role Phone Jigna Penaloza NP Primary Care Provider [phone] Allergies Active Allergy Reactions Criticality Noted Date [...] 08/11/2023 Assessment & Plan (08/11/2023 1:43 PM LINE REPAIRER): Discussed the patients BMI: The BMI is above average BMI management is complete. BMI follow-up includes: Nutrition Counseling and education provided Physical exam, annual 08/11/2023 Acquired hypothyroidism 08/11/2023 Attention deficit hyperactiv ity disorder (ADHD), predominantly inattentive type 08/11/2023 Cough 12/16/2022 Femoroacetabular impingement of right hip 2022 Overview (08/30/2022): Added automatically from request for surgery [id number] Labral tear of hip, degenerative 08/30/2022 Overview (08/30/2022): Added automatically from request for surgery [id number] Polycystic ovary syndrome 11/08/2021 Vitamin B12 deficiency [...] on file Legal Sex Female 3:30 AM LINE REPAIRER Gender Identity Not on file Sexual Orientation Not on file 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 on file Not on file Not on file Last Filed Vital Signs Vital Sign Reading Time Taken Comments Blood Pressure 110/80 08/11/2023 1:35 PM LINE REPAIRER Pulse 100 08/11/2023 1:35 PM LINE REPAIRER Temperature 36.8 C (98.3 F) 08/11/2023 1:35 PM LINE REPAIRER Respiratory Rate 25 10/03/2022 10:20 AM CDT Oxygen Saturation 97% 08/11/2023 1:35 PM LINE REPAIRER Inhaled Oxygen Concentration - - Weight 74.4 kg (164 lb) 08/11/2023 1:35 PM LINE REPAIRER Height 154.9 cm (5' 1) 08/11/2023 1:35 PM LINE REPAIRER Body Mass Index 30.99 08/11/2023 1:35 PM LINE REPAIRER Plan of Treatment Not on file Medical Devices Implanted Type Area Earthmoving Labourer Device Identifier Shelf Expiration Date Model / Serial / Lot [facility] Cinchlock Ss Knotless Tow Mate Lock [place] Suture Labrum [id number] - [id number] Implanted:Qty: 1 on 10/03/2022 by Elva Kramer MD at [facility] Right: Hip [facility] 10/19/2022 [id number] / / [id number] [facility] Cinchlock [employer]s Knotless Tow Mate Lock [place] Suture Labrum [id number] - [id number] Implanted:Qty: 1 on 10/03/2022 by Elva Kramer MD at [facility] Right: Hip [facility] 12/14/2023 [id number] / / [id number] [facility] Cinchlock Ss Knotless Tow Mate Lock [place] Suture Labrum [id number] - [id number] Implanted:Qty: 1 on 10/03/2022 by Elva Kramer MD at [facility] Right: Hip [facility] 12/14/2023 [id number] / / [id number] Explanted Type Area Earthmoving Labourer Device Identifier Shelf Expiration Date Model / Serial / Lot [facility] Xbraid 1.2mm Suture Nonabsorbable Titanium Uhmwpe Nonsterile [id number] - [id number] Explanted:Qty: 1 on 10/03/2022 at [facility] Right: Hip [facility] [id number] / / Description:Item built in Ep ic as implant. Added to this screen to correct charge on supply screen [id number] Insurance [facility]PPO Address: [place] [address] [facility]O Address: [address] [address] [facility]PPO Address: [place] [phone] [place] [phone] Care Teams Clinical Radiologist Relationship Specialty Start Date End Date Jigna Penaloza NP [phone] [facility] [[email or web address] [place] [address] PCP - General Internal Medicine 08/11/23
--- OUTSIDE RECORDS SUMMARY | 2025-01-13 14:42 | XMS_ITS | Data Portability ---
Author Organization [facility], Main Office Address [address] [place] [address] Assessment No assessment recorded. Plan of Treatment Reminders Order Date Submit Date Provider Last Modified By Organization Details Last Modified Time Details Appointments None recorded. Lab vitamin D, 25-hydroxy, total, serum [address] (Lab), [address] [place] [address], [address], 4 08:08:49 drug of abuse panel, urine 2023 024 [facility] (Lab), [address] [place] [address], [address], 4 19:33:29 CBC w/ auto diff [address] (Lab), [address] [place] [address], [address], 4 08:08:48 CMP, serum or plasma [address] (Lab), [facility] [address], [address], 4 08:08:48 lipid panel, serum [address] (Lab), [address] [place] [address], [address], 4 08:08:48 HbA1c (hemoglobin A1c), blood 2023 [email or web address] [place] [address] ([facility]), [address] [place] [address], [address], 4 08:08:48 Referral None recorded. Procedures None recorded. Surgeries None recorded. Imaging None recorded. Medication Orders bupropion HCl XL 300 mg 24 hr tablet, extended release 2024 025 [facility], [address] [place] [address], [address], 5 08:45:46 dextroamphe tamine-amph etamine ER 30 mg 24hr capsule,ext end release [address] [facility] 2425, [address] [facility], [place], [address], 4 08:44:56 metformin ER 500 mg tablet,exte nded release 24 hr [address] 2425, [address] [facility], [place], [address], 4 08:52:42 spironolact one 50 mg tablet [address] [facility] 2425, [address] [facility], [place], [address], 3 12:08:47 metformin ER 500 mg tablet,exte nded release 24 hr 2022 023 [email or web address] [address] [facility], [address] [place] [address], [address], 4 08:52:42 spironolact one 50 mg tablet 2022 023 [facility], [address] [place] [address], [address], 3 12:09:49 Synthroid 88 mcg tablet 2022 023 [email or web address] [address] [facility], [address] , [address], [place], [address], 4 08:53:00 Patient TargetsNo targets recorded. Patient InstructionsNo instructions recorded. Reason for Referral None Reported. Results Created Date Observation Date Name Description Value Unit Range Abnormal Flag Note LastModifiedBy Organization Detail LastModifiedTime 03/14/2003/14/2023 MAMMO , scree hugo, digit al, bilat eral No observ ation record ed. [id number] [facility] [address], [place], [address], 03/15/2023 09:07:31 Result Notes None recorded. Problems Name Problem SNOMED Code Status Onset Date Resolution Date Notes Provider Name and Address Organization Details Recorded Time Attention deficit hyperactiv ity disorder 116062307 Active 2022 MARIA LUISA Hart [address], [place] [address] [address], [place], [address] , [facility] 3 10:06:32 Cough 59879815 Active 2022 MARIA LUISA Hart [address], [address], [place], [address] , [facility] 3 10:06:28 Elevated blood-pres sure reading without diagnosis of hypertensi on 039061470 Active 2023 ESTRELLA Najera [address], [address], [place], [address] , [facility] 4 08:41:30 Numbness and tingling sensation of skin 022585833946 Active 2017 Not Available [facility] 3 04:49:22 Urinary incontinen ce 879924690 Active 2017 Not Available [facility] 3 04:49:22 Adjustment disorder 55404956 Active Not Available [facility] 3 04:49:22 Allergic rhinitis caused by pollen 74980066 Active Not Available [facility] 3 04:49:22 Polycystic ovary syndrome 388662905 Active 2021 Not Available [facility] 3 04:49:22 Thyroid nodule 349839878 Active Not Available [facility] 3 04:49:22 Poor concentrat ion 02116214 Active 2018 Not Available [facility] 3 04:49:23 Vitamin D deficiency 48236533 Active Not Available [facility] 3 04:49:23 Goiter 4732225 Active 2021 Not Available [facility] 3 04:49:23 Hypothyroi dism 22588354 Active 2021 Not Available [facility] 3 04:49:23 Vitamin B12 deficiency (non anemic) 63983423 Active 2021 Not Available [facility] 3 04:49:23 Problem Notes Documentation Provider Name and Address Organization Details Recorded Time Endocrinology Consult Note : [facility] [address], [facility] [address]OFJZPT, Stacy A (id #[id number], : 1980) Documents [...] received this fax in error, please visit [email or web address] to notify the sender and confirm that the information will be destroyed. If you do not have internet access, please call to notify the sender and confirm that the information will be destroyed. Thank you for your attention and cooperation. [ID:[id number]][facility] [employer] [facility] [address] [place] [address] , Date: 04/04/2023RE: Ines Montiel, : 1980, PT ID #[id number] Osmel GLASS, I would like to thank you for referring Ines Montiel to our practice for consultation and evaluation of FU ON LABS , on 04/04/2023. I have enclosed a copy of the office evaluation for your records. Once again, thank you for allowing me to participate in the care of this patient. Sincerely, Electronically Signed by: NURYS EPREZ MD Encounter Reason/Date FU ON LABS 04/04/2023 - 11:00AM - [facility] [place] Problems:Problems not reviewed (last reviewed [...] Syringe Ultra-Fine 1 mL 31 gauge x /16USE TO INJECT B12 EVERY WEEK IN [facility] VGBYOTLT47/29/21 filled MIGRATION.[id number] buPROPion HCL XL 300 mg 24 hr [...] with needle 0.5 mL 31 gauge x filled MIGRATION.[id number] metFORMIN ER 500 mg tablet,extended release 24 hrTAKE 1 TABLET BY MOUTH ONCE DAILY WITH DINNER x 90 days04/04/23 prescribed Nurys Perez MD spironolactone 50 mg tabletTAKE 2 TABLETS BY MOUTH EVERY DAY IN THE JNSWFKN08/03/23 prescribed Nurys Perez MD Synthroid 88 mcg tabletTake 1 tablet(s) every day by oral route as directed for 90 days.04/04/23 prescribed Nurys Perez MD ZyrTECstart started MIGRATION.[id number] Family History: Father - Hypertensive disorder - [...] days Qty: (90) tablet Refills: 3 Pharmacy: [facility] 0730 spironolactone 50 mg tablet - TAKE 2 TABLETS BY MOUTH EVERY DAY IN THE MORNING Qty: (180) tablet Refills: 3 Pharmacy: [facility] 2425 metformin ER 500 mg tablet,extended release 24 hr - TAKE 1 TABLET BY MOUTH ONCE DAILY WITH DINNER x 90 days Qty: (90) tablet Refills: 3 [facility]acy: [facility] spironolactone 50 mg tablet - TAKE 2 TABLETS BY MOUTH EVERY DAY IN THE MORNING Qty: (180) tablet Refills: 3 Pharmacy: [facility] 2. Hypothyroidism-TSH and FT4 in [...] his/her PCP can refer patient to another flexboard operator in the area. All questions /concerns answered and refills necessary at visit today.E03.9: Hypothyroidism, unspecified Synthroid 88 mcg tablet - Take 1 tablet(s) every day by oral route as directed for 90 days. Qty: (90) tablet Refills: 3 Pharmacy: [facility] Return to Office Patient will return to the office as needed HEMAL Velez [facility] 04/05/2023 09:43:24 Procedures Surgical History Date Name Laterality Status Provider Name and Address Organization Details Recorded Time Hip surgery completed Lara Castellanos RN [facility] 04/04/2023 11:55:05 Knee completed Not Available [facility] 07/2022 04:41:57 ligation of bilateral fallopian tubes completed Not Available [facility] 08/31/2022 04:41:57 Sinus Surgery completed Not Available [facility] 08/31/2022 04:41:57 Imaging Results None recorded. Procedure Notes None recorded. Medical Equipment None Reported. Allergies Allergen ID Allergen Name Allergen Category Reaction Reaction Severity Criticality Documentation Date Start Date Code Code System Note Provider Name and Address Organization Details Recorded Time 7382 Levaquin medicatio n dizziness Not available Not available 08/31/2022 21450 2 RxNorm Not Available [facility] 3 05:00:35 7383 amoxicill in medicatio n rash Not available Not available 08/31/2022 723 RxNorm Not Available [facility] 3 05:00:35 Medications Name Sig Start Date [...] e 50 mcg/actua tion nasal spray,inderjit pension [place] 1 spray every day by intranas al [...] duloxetin e 60 mg capsule,d elayed release Take 1 capsule every day by oral route. 2024 active Not Available Not Available Not [...] USE TO INJECT B12 EVERY WEEK IN [facility] DIRECTED 03/18 /2025 completed Not Available Not Available Not Available bupropion HCl 150 mg tablet,12 hr sustained -release( smoking deterrent ) Take 1 tablet twice a day by oral route. 10/02 completed Not Available Not Available Not Available Vitals Date Recorded Body height Body mass index (BMI) Body weight Body temperature Oxygen saturation Oxygen saturation in Arterial blood by Pulse oximetry Heart rate Systolic And Diastolic Provider Name and Address Organization Details Last Updated DateTime 4 154.94 cm 31.6 kg/m2 42999.9 3 g 96.8 [degF] 99 % 99 % 85 /min 130/86 mm[Hg] Lay Cook RN [facility] 4 09:27:19 Date Recorded Body height Body mass index (BMI) Body weight Body temperature Heart rate Oxygen saturation Oxygen saturation in Arterial blood by Pulse oximetry Systolic And Diastolic Provider Name and Address Organization Details Last Updated DateTime 5 154.94 cm 29.3 kg/m2 60448.8 2 g 98 [degF] 89 /min 99 % 99 % 108/68 mm[Hg] Caren Spears MA [facility] 5 08:38:32 Date Recorded Body height Body mass index (BMI) Body weight Body temperature Heart rate Oxygen saturation Oxygen saturation in Arterial blood by Pulse oximetry Systolic And Diastolic Provider Name and Address Organization Details Last Updated DateTime 4 154.94 cm 31.2 kg/m2 28197.7 4 g 98 [degF] 76 /min 98 % 98 % 120/84 mm[Hg] Eze Caldwell RN [facility] 4 08:52:11 Date Recorded Body height Body mass index (BMI) Body weight Respiratory rate Body temperature Heart rate Systolic And Diastolic Provider Name and Address Organization Details Last Updated DateTime 3 154.94 cm 31.6 kg/m2 40054.9 3 g 14 /min 97.9 [degF] 85 /min 122/88 mm[Hg] Lara Castellanos RN [facility] 3 11:53:29 Date Recorded Systolic And Diastolic Provider Name and Address Organization Details Last Updated DateTime 06/19/2024 116/70 mm[Hg] WINTER Najera-Tee [address], [address], [place], [address], [facility] 06/19/2024 08:44:28 Date Recorded Body height Body mass index (BMI) Body weight Body temperature Heart rate Oxygen saturation Oxygen saturation in Arterial blood by Pulse oximetry Provider Name and Address Organization Details Last Updated DateTime 154.94 cm 29.7 kg/m2 32818 g 97.7 [degF] 56 /min 98 % 98 % Eze Caldwell RN [facility] 08:34:22 Social History Question Answer Notes LastModified by Organizat ion Details LastModified Time Tobacco Smoking Status Never Smoker Not Available [facility] 08/31/2022 04:15:22 What Is Your Level Of Caffeine Consumption? Moderate MIGRATION.[id number] Information not available 08/31/2022 How Much Tobacco Do You Chew? None MIGRATION.892007 4322 Information not available 08/31/2022 In The 14 Days Before Symptom Onset, Have You Had Close Contact With A Laboratory-confir med COVID-19 While That Case Was Ill? No MIGRATION.175122 4100 Information not available 08/31/2022 In The 14 Days Before Symptom Onset, Have You Had Close Contact With A Person Who Is Under Investigation For COVID-19 While That Person Was Ill? No MIGRATION.145775 9609 Information not available 08/31/2022 What Type Of Diet Are You Following? REGULAR MIGRATION.272976 5146 Information not available 08/31/2022 Which Illicit Or Recreational Drugs Have You Used? None MIGRATION.681273 7484 Information not available 08/31/2022 Have There Been Any Changes To Your Family Or Social Situation? No Information no t available 09/17/2024 Do You Use Insect Repellent Routinely? No Information not available 09/17/2024 Where Do You Live? [facility] Information not available 09/17/2024 What [...] Do You Have Any Dietary Restrictions? No MIGRATION.548212 3544 Information not available 08/31/2022 Sex: Unknown Functional Status Question Answer Note LastModified by Organizat ion Details LastModified Time Do you or have you ever used any other forms of tobacco or nicotine? No MIGRATION.1253005 026 Information not available 08/31/2022 What is your level of alcohol consumption? None MIGRATION.4925042 026 Information not available 08/31/2022 Do you or have you ever used smokeless tobacco? Never used smokeless tobacco MIGRATION.8651859 026 Information not available 08/31/2022 Are you currently employed? Yes Information not available 09/17/2024 What is your occupation? Teacher MIGRATION.9418638 026 Information not available 08/31/2022 Do you or have you ever used e-cigarettes or vape? Never used electronic cigarettes MIGRATION.1517590 026 Information not available 08/31/2022 What is your exercise level? None MIGRATION.9300445 026 Information not available 08/31/2022 Mental Status Question Answer Note LastModified by Organization D etails LastModified Time Do you feel stressed (tense, restless, nervous, or anxious, or unable to sleep at night)? [id number] Information not available 09/17/2024 Family History Relationship Description Onset Age of this Age Resolved Age Notes LastModified by Organization Details LastModified Time Father Hypertensive disorder MIGRATION.468 [id number] Not available 08/31/2022 04:42:00 Father Polycythemia vera (clinical) frivastorres Not available 08:28:26 Brother Hypertensive disorder MIGRATION.088 [id number] Not available 08/31/2022 04:42:00 Mother Disorder of thyroid gland MIGRATION.305 [id number] Not available 08/31/2022 04:42:00 Notes:no breast, colon, [...] (COVID-19) vaccine, UNSPECIFIED 1 completed Not Available [facility] 08/31/2022 05:00:13 Influenza, split virus, quadrivalent, PF 2 completed Not Available [facility] 08/31/2022 05:00:13 Influenza, split virus, quadrivalent, PF 8 completed Not Available [facility] 08/31/2022 05:00:13 Influenza, split virus, quadrivalent, PF 1 completed Not Available [facility] 08/31/2022 05:00:13 Influenza, split virus, quadrivalent, PF 9 completed Not Available [facility] 08/31/2022 05:00:13 Influenza, split virus, quadrivalent, PF 4 completed ESTRELLA Tinajero [address] [facility], [facility] [address], [place], [address], [facility] Peter Blueberry [facility] 07/12/2023 09:53:41 Past Encounters Encounter ID Performer Location Encounter Start Date Encounter Closed Date Diagnosis/Indication Diagnosis SNOMED-CT Code Diagnosis ICD10 Code Diagnosis Note [id number] Nurys Perez MD [facility] [place] [address] [place] [address] 10/23/2020 00:00:00 10/23/2020 09:06:08 [id number] Nurys Perez MD [facility] [place] [address] [place] [address] 01/22/2021 00:00:00 01/22/2021 14:48:49 [id number] Flavia Torrez MD [facility] [place] [address] [place] [address] 02/03/2021 00:00:00 02/03/2021 18:16:46 [id number] Flavia Torrez MD [facility] [place] [address] [place] [address] 03/18/2021 00:00:00 03/18/2021 22:48:30 [id number] Nurys Perez MD [facility] [place] [address] [place] [address] 05/31/2021 00:00:00 05/31/2021 10:52:51 [id number] Flavia Torrez MD [facility] [place] [address] [place] [address] 07/23/2021 00:00:00 07/23/2021 15:34:07 [id number] [facility] [place] [address] [place] [address] 11/08/2021 00:00:00 11/08/2021 16:09:49 [id number] MARIA LUISA Hart [facility] [place] [address] [place] [address] 12/10/2021 00:00:00 12/10/2021 11:33:56 [id number] MARIA LUISA Hart [facility] [place] [address] [place] [address] 03/30/2022 00:00:00 03/30/2022 13:16:12 [id number] [facility] [place] [address] [place] [address] 05/09/2022 00:00:00 05/09/2022 13:12:[id number] [facility] Primary Care [facility] [address] [facility] [place] [address] 07/22/2022 00:00:00 07/22/2022 11:12:[id number] [facility] Primary Care [facility] [address] [facility] [address] [place] [address] 12/16/2022 09:45:21 12/16/2022 10:33:37 Attention deficit hyperactivity disorder 449498191 F90.9 Stable. Continue dextroamph etamine-am phetamine 30mg daily. No refill needed today.Pt denies any lending, selling, or borrowing of medication s.UDS updated today. Long-term drug therapy 700739593 Z79.899 Cough 13856221 R05.9 Post-nasal drainage.W ill start daily flonase, continue daily allergy pill. [id number] Nurys Perez MD [facility] [place] [address] [place] [address] 04/04/2023 11:46:06 04/04/2023 12:46:17 Polycystic ovary syndrome 649011755 E28.2 Insulin and fasting glucose in range- her labs were actually drawn later in day- testostero ne pending and dheas not reliable due to inadequate timing. Continue on metformin for insulin sensitizat ion. Continue spironolac tone as patient tolerating well and she has good energy and no concerns of hair loss or hirsutism at this time. Hypothyroidism 33406919 E03.9 TSH and FT4 in range- continue [...] informatio n in the electronic health record, cecilioen baileyy interpreti ng results and communicat ing results to the patient. Patient can be followed by PCP - she/he is aware of my resignatio n and last day of April 14. If needed his/her PCP can refer patient to another endocrinol ogist in the area. All questions /concerns answered and refills necessary at visit today. [id number] ESTRELLA Tinajero [facility] Primary Care [address] [place] [address] 07/12/2023 09:20:18 07/12/2023 13:51:52 Attention deficit hyperactivity disorder 578012753 F90.9 -chronic, stable with use of dextro-amp hetamine 30mg-no complaints per pt-no refill needed today-Pt denies any lending, selling, or borrowing of medication s. Long-term drug therapy 441457825 Z79.899 UDS up to date Administra tion of influenza vaccine 55014386 Z23 [id number] ESTRELLA Najera [facility] Primary [facility] [address] [place] [address] 03/20/2024 08:46:15 03/20/2024 09:11:51 Adult health examination 369355771 Z00.00 Discussed medication compliance and routine follow up.Discuss ed healthy diet and routine exercise.Duane elkinswed vaccine records and made recommenda tions as needed.Enc ouraged annual eye and dental exams, as well as twice yearly dental cleanings. Will check screening labs as listed below.Mamm ogram scheduled in lonoscopy- age 46 Long-term drug therapy 444558421 Z79.899 Attention deficit hyperactivity disorder 209688813 F90.9 [place].Wait ing for medical records from Jody Penaloza before restarting Adderall. Hypothyroidism 40560779 E03.9 patient follows endocrinol ogy-next appt in May. Vitamin D deficiency 347 89544 E55.[id number] [facility] Primary Care [facility] [address] [facility] [address] [place] [address] 06/19/2024 08:27:35 06/19/2024 08:42:27 Attention deficit hyperactivity disorder 952710542 F90.9 Patient is doing well on current medication s, no concerns at this time. Will continue to refill and follow up every 3 months per [facility] DS UTDlast fill: 06/04/24 Elevated blood-pressure reading without diagnosis of hypertension 623695378 R03.0 158/72 fzafltc861 /70 recheck [id number] EST[address] [facility] Primary Care [facility] [address] [facility] [address] [place] [address] 09/17/2024 08:30:05 09/17/2024 08:47:02 Adjustment disorder 21657870 F43.20 Doing well on current medication s, no concerns at this time. Attention deficit hyperactivity disorder 359555053 F90.9 Doing well on current medication s, no concerns at this time. Hypothyroidism 43406145 E03.9 Follows endocrinol ogy, doing well at this time. Health Concerns Section Related Observation LastModified by Organization Detai ls LastModified Time None Recorded Concern Status LastModified by Organization Details LastModified Time None Recorded Advance Directives Directive None Recorded Payers Insurance Date Sequence Insurance Name Policy Number Policy Robbins Covered Member ID Robbins Member ID Guarantor Name 09/14/2024 1 [facility] [id number] Ines Montiel [id number] Ines Montiel Notes Date Note Type Note Provider Name [...] ug/ml but nonfasting Nurys Perez MD [address], [address], [place], [address], [employer] 04/04/2023 14:41:27 07/12/2023 text/html Pt is here for 6 month f/u ESTRELLA Tinajero [address], [place], [address], [employer] 07/12/2023 09:56:43 03/20/2024 text/html Patient is a 43 year old female that presents to the office for annual wellness. Patient reports she is doing well and has no concerns at this time including chest pain and shortness of breath, nausea vomiting and diarrhea. Patient sees endocrinology at [facility], follows up in May and is scheduled to have labs drawn in April. 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 This was last prescribed by Jigna Penaloza at [facility]. Patient states I went to see her when I couldn't get in here for an appointment. Discussed with patient that she cannot have two primary care providers-will obtain medical records. labs-orderedMammogra m- scheduled in - Octoberolonoscopy-age [id number] ap-aware ESTRELLA Najera [address], [address], [place], [address], [employer] 03/20/2024 11:51:11 06/19/2024 text/html Patient is a 44 year old female that presents to the office for 3 month follow up. Patient is doing well on current medications and has no concerns at this time including chest pain and shortness of breath. ESTRELLA Najera [address], [place], [address], [employer] 06/19/2024 08:45:10 09/17/2024 text/html Patient is a 44 year old female that presents to the office for 3 month follow up. Patient is doing well on current medications and has no concerns at this time. WINTER Najera-C [address] [place] [address], [facility] [address], [place], [address], [place] [facility] [email or web address] 09/17/2024 08:48:48 OBGyn Episode No OBEpisode recorded.
--- OUTSIDE RECORDS SUMMARY | 2025-01-13 14:42 | XMS_ITS | Encounter Summary ---
Author Organization [facility] Address [address] [place] [address] Care Team Providers Care Mining Support Worker Name Role Phone Lucinda Cummings MD Primary Care Provider Unavailable Flavia Torrez MD Primary Care Provider [phone] Encounter Details Date Type Department Care Team (Late st Contact Info) Description 05/06/2017 Abstract [place] [address] Lucinda Cummings MD Social History Tobacco Use [...] on filedocumented in this encounter Care Teams Mining Support Worker Relationship Specialty Start Date End Date Lucinda Cummings MD PCP - General 11/22/14 Flavia Torrez MD [address] [place] [address] [place] [address] PCP - General FAMILY PRACTICE 05/10/22 documented as of this encounter
== END 2025-01-13 14:38 | disposition home or self-care (01) ==
LOC: CHSIMG 14:40
PROVIDERS: PCP Nurse Practitioner; Visit Provider Advanced Practice Midwife
DX: Z12.31 Encounter for screening mammogram for malignant neoplasm of breast (principal); R92.8 Other abnormal and inconclusive findings on diagnostic imaging of breast
CPT/HCPCS: 77063; 77067

== ENCOUNTER 2025-01-23 09:43 | Outpatient (CLI) | payer OTHER, SELFPAY ==
--- NOTE | ~2025-01-23 | MM_ITS ---
EXAMINATION: MM diagnostic gian RT w liliane INDICATION: 44-year old female; BI-RADS 0, callback to evaluate Right breast finding COMPARISON: 01/13/2025 TECHNIQUE: Digital breast tomosynthesis True lateral view and spot compression pain CC and MLO views of Right breast were obtained with computer-aided detection to assist in interpretation of the study. FINDINGS: The breasts are heterogeneously dense, which may obscure small masses. The focal asymmetry seen in the central aspect posterior Right breast on the screening mammogram effa ryne on additional views, compatible with normal overlapping tissue.. IMPRESSION: Right breast finding represents superimposition of fibroglandular tissue. No further investigation ne cessary. RECOMMENDATION: Annual screening mammography in 12 months BI-RADS 2, BENIGN Reviewed, dictated and finalized at location B. IMPRESSION: Right breast finding represents superimposition of fibroglandular tissue. No fu rther investigation necessary. RECOMMENDATION: Annual screening mammography in 12 months BI-RADS 2, BENIGN
--- OUTSIDE RECORDS SUMMARY | 2025-01-23 09:49 | XMS_ITS | Clinical Summary ---
Author Organization [facility] Address [facility] [place] [address] Care Team Providers Care Color Weigher Name Role Phone Flavia Torrez MD Primary [...] of 3 - 19+ 3-dose series) 2000 HPV Vaccines (1 - 3-dose SCDM series) 2008 Cervical Cancer Screening Pap with HPV Testing (Age 30 to 64) Every 5 Years 2011 Cervical Cancer Screening with HPV 2011 Mammogram Screening 2021 COVID-19 Vaccine ( season) 2024 05/07/2021, 09/01/2020, 07/30/2020, Additional history exists DTaP, Tdap and Td Vaccines (2 - Td or Tdap) 10/24/2028 10/24/2018 Meningococcal B Vaccine Aged Out No l [...] patient's age to complete this topic Insurance [facility] Care Teams Color Weigher Relationship Specialty Start Date End Date Flavia Torrez MD [address] [place] [address] [place] [address] PCP - General FAMILY PRACTICE 05/10/22
--- OUTSIDE RECORDS SUMMARY | 2025-01-23 09:49 | XMS_ITS | Referral Summary ---
Author Organization [facility] Address [facility] [place] [address] Care Team Providers Care Surgical Services Director Name Role Phone Jigna Penaloza NP Primary Care Provider [phone] Allergies Active Allergy Reactions Criticality Noted Date [...] 08/11/2023 Assessment & Plan (08/11/2023 1:43 PM SHOP LEAD): Discussed the patients BMI: The BMI is above average BMI management is complete. BMI follow-up includes: Nutrition Counseling and education provided Physical exam, annual 08/11/2023 Acquired hypothyroidism 08/11/2023 Attention deficit hyperactiv ity disorder (ADHD), predominantly inattentive type 08/11/2023 Cough 12/16/2022 Femoroacetabular impingement of right hip 2022 Overview (08/30/2022): Added automatically from request for surgery [id number] Labral tear of hip, degenerative 08/30/2022 Overview (08/30/2022): Added automatically from request for surgery [id number] Polycystic ovary syndrome 11/08/2021 Vitamin B12 deficiency [...] on file Legal Sex Female 3:30 AM SHOP LEAD Gender Identity Not on file Sexual Orientation Not on file 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 on file Not on file Not on file Last Filed Vital Signs Vital Sign Reading Time Taken Comments Blood Pressure 110/80 08/11/2023 1:35 PM SHOP LEAD Pulse 100 08/11/2023 1:35 PM SHOP LEAD Temperature 36.8 C (98.3 F) 08/11/2023 1:35 PM SHOP LEAD Respiratory Rate 25 10/03/2022 10:20 AM CDT Oxygen Saturation 97% 08/11/2023 1:35 PM SHOP LEAD Inhaled Oxygen Concentration - - Weight 74.4 kg (164 lb) 08/11/2023 1:35 PM SHOP LEAD Height 154.9 cm (5' 1) 08/11/2023 1:35 PM SHOP LEAD Body Mass Index 30.99 08/11/2023 1:35 PM SHOP LEAD Plan of Treatment Not on file Medical Devices Implanted Type Area Cartridge Loading Operator Device Identifier Shelf Expiration Date Model / Serial / Lot [place] [facility] Cinchlock Ss Knotless Blowing Weasand Lock [facility] Suture Labrum [id number] - [id number] Implanted:Qty: 1 on 10/03/2022 by Elva Kramer MD at [facility] Right: Hip [facility] 10/19/2022 [id number] / / [id number] [employer] [facility] Cinchlock Ss Knotless Blowing [employer] Lock [facility] Suture Labrum [id number] - [id number] Implanted:Qty: 1 on 10/03/2022 by Elva Kramer MD at [facility] Right: Hip [facility] 12/14/2023 [id number] / / [id number] [facility] Cinchlock Ss Knotless Blowing Weas[employer] Lock [facility] Suture Labrum [id number] - [id number] Implanted:Qty: 1 on 10/03/2022 by Elva Kramer MD at [facility] Right: Hip [facility] 12/14/2023 [id number] / / [id number] Explanted Type Area Cartridge Loading Operator Device Identifier Shelf Expiration Date Model / Serial / Lot [facility] Xbraid 1.2mm Suture Nonabsorbable Titanium Uhmwpe Nonsterile [id number] - [id number] Explanted:Qty: 1 on 10/03/2022 at [facility] Right: Hip [facility] [id number] / / Description:Item built in Ep ic as implant. Added to this screen to correct charge on supply screen K[place] [id number]* Insurance [facility] HMO/PPO Address: [place] [address] [facility] HMO/PPO Address: [address] [address] [facility] CHOICE [facility] HMO/PPO Address: [place] [id number] [place] [id number] Care Teams Surgical Services Director Relationship Specialty Start Date End Date Jigna Penaloza NP [address] [place] [address] PCP - General Internal Medicine 08/11/23
--- OUTSIDE RECORDS SUMMARY | 2025-01-23 09:49 | XMS_ITS | Encounter Summary ---
Author Organization [facility] Address [address] [place] [address] Care Team Providers Care Operating Manager Name Role Phone Flavia Torrez MD Primary Care Provider [phone] Encounter Details Date Type Department Care Team (Late st Contact Info) Description 11/24/2022 Osmopure Message [facility] Patient Accounts [address] [place] [address] [facility] Action Needed Social History Tobacco [...] on filedocumented in this encounter Care Teams Operating Manager Relationship Specialty Start Date End Date Flavia Torrez MD [address] [place] [address] [place] [address] PCP - General FAMILY PRACTICE 05/10/22 documented as of this encounter
--- OUTSIDE RECORDS SUMMARY | 2025-01-23 09:49 | XMS_ITS | Encounter Summary ---
Author Organization [facility] Address [address] [place] [address] Care Team Providers Care Evp Marketing Name Role Phone Lucinda Cummings MD Primary Care Provider Unavailable Flavia Torrez MD Primary Care Provider [phone] Encounter Details Date Type Department Care Team (Late st Contact Info) Description 05/06/2017 Abstract [place] [address] Lucinda Cummings MD Social History Tobacco Use [...] on filedocumented in this encounter Care Teams Evp Marketing Relationship Specialty Start Date End Date Lucinda Cummings MD PCP - General 11/22/14 Flavia Torrez MD [address] [place] [address] [place] [address] PCP - General FAMILY PRACTICE 05/10/22 documented as of this encounter
--- OUTSIDE RECORDS SUMMARY | 2025-01-23 09:49 | XMS_ITS | Clinical Summary ---
Author Organization [facility] Address [facility] [place] [address] Care Team Providers Care Front Desk Worker Name Role Phone Jigna Penaloza NP Primary Care Provider [phone] Allergies Active Allergy Reactions Criticality Noted Date [...] 08/11/2023 Assessment & Plan (08/11/2023 1:43 PM SCORER HELPER): Discussed the patients BMI: The BMI is above average BMI management is complete. BMI follow-up includes: Nutrition Counseling and education provided Physical exam, annual 08/11/2023 Acquired hypothyroidism 08/11/2023 Attention deficit hyperactiv ity disorder (ADHD), predominantly inattentive type 08/11/2023 Cough 12/16/2022 Femoroacetabular impingement of right hip 2022 Overview (08/30/2022): Added automatically from request for surgery [id number] Labral tear of hip, degenerative 08/30/2022 Overview (08/30/2022): Added automatically from request for surgery [id number] Polycystic ovary syndrome 11/08/2021 Vitamin B12 deficiency [...] on file Legal Sex Female 3:30 AM SCORER HELPER Gender Identity Not on file Sexual Orientation Not on file 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 on file Not on file Not on file Obstetrics History Last Filed Vital Signs Vital Sign Reading Time Taken Comments Blood Pressure 110/80 08/11/2023 1:35 PM SCORER HELPER Pulse 100 08/11/2023 1:35 PM SCORER HELPER Temperature 36.8 C (98.3 F) 08/11/2023 1:35 PM SCORER HELPER Respiratory Rate 25 10/03/2022 10:20 AM CDT Oxygen Saturation 97% 08/11/2023 1:35 PM SCORER HELPER Inhaled Oxygen Concentration - - Weight 74.4 kg (164 lb) 08/11/2023 1:35 PM SCORER HELPER Height 154.9 cm (5' 1) 08/11/2023 1:35 PM SCORER HELPER Body Mass Index 30.99 08/11/2023 1:35 PM SCORER HELPER Plan of Treatment Health Maintenance Due Date Last Done Comments Breast Cancer Screening-Mammogram 1981 Cervical Cancer Screening 1981 Hepatitis C Screening 1981 DTaP/Tdap/Td Vaccine (1 - Tdap) 1992 Varicella Vaccines (1 of 2 - 13+ 2-dose series) 1994 Hepatitis B Screening 1999 HPV Vaccines (1 - 3-dose SCDM series) 2008 Covid-19 Vaccine ( season) 2024 05/07/2021, 09/01/2020, 07/30/2020 Depression Screening 08/11/2024 08/11/2023 Regular Well Visit/Exam 18-64 08/11/2024 08/11/2023 Influenza Vaccine (#1) 2025 , 07/12/2023, 03/30/2022, Additional history exists Pneumococcal vaccine <65 Aged Out No longer eligible based on patient's age to complete this topic Medical Devices Implanted Type Area Team Member Device Identifier Shelf Expiration Date Model / Serial / Lot [facility] Cinchlock Ss Knotless Plumbing Installer [employer] [place] Suture Labrum [id number] - [id number] Implanted:Qty: 1 on 10/03/2022 by Elva Kramer MD at [facility] Right: Hip [facility] 10/19/2022 [id number] / / [id number] [facility] Cinchlock Ss Knotless Plumbing Installer [employer] [place] Suture Labrum [id number] - [id number] Implanted:Qty: 1 on 10/03/2022 by Elva Kramer MD at [facility] Right: Hip [facility] 12/14/2023 [id number] / / [id number] [facility] Cinchlock Ss Knotless Plumbing Installer [employer] [place] Suture Labrum [id number] - [id number] Implanted:Qty: 1 on 10/03/2022 by Elva Kramer MD at [facility] Right: Hip [facility] 12/14/2023 [id number] / / [id number] Explanted Type Area Team Member Device Identifier Shelf Expiration Date Model / Serial / Lot [facility] Xbraid 1.2mm Suture Nonabsorbable Titanium Uhmwpe Nonsterile [id number] - [id number] Explanted:Qty: 1 on 10/03/2022 at [facility] Right: Hip [facility] [id number] / / Description:Item built in Ep ic as implant. Added to this screen to correct charge on supply screen [id number]* Insurance Care Teams Front Desk Worker Relationship Specialty Start Date End Date Jigna Penaloza NP [address] [facility] [address] [place] [address] PCP - General Internal Medicine 08/11/23
--- OUTSIDE RECORDS SUMMARY | 2025-01-23 09:49 | XMS_ITS | Data Portability ---
Author Organization [facility], Main Office Address [address] [place] [address] Assessment No assessment recorded. Plan of Treatment Reminders Order Date Submit Date Provider Last Modified By Organization Details Last Modified Time Details Appointments None recorded. Lab vitamin D, 25-hydroxy, total, serum [address] (Lab), [address] [place] [address], [id number], 4 08:08:49 drug of abuse panel, urine 2023 024 [facility] (Lab), [address] [place] [address], [id number], 4 19:33:29 CBC w/ auto diff [address] (Lab), [address] [place] [address], [id number], 4 08:08:48 CMP, serum or plasma [address] (Lab), [facility] [address], [address], 4 08:08:48 lipid panel, serum [address] (Lab), [address] [place] [address], [address], 4 08:08:48 HbA1c (hemoglobin A1c), blood 2023 [email or web address] [place] [address] ([facility]), [address] [place] [address], [phone], 4 08:08:48 Referral None recorded. Procedures None recorded. Surgeries None recorded. Imaging None recorded. Medication Orders bupropion HCl XL 300 mg 24 hr tablet, extended release 2024 025 [facility], [address] [place] [address], [address], 5 08:45:46 dextroamphe tamine-amph etamine ER 30 mg 24hr capsule,ext end release 2023 024 [facility] 2425, [address] [facility], [place], [address], 4 08:44:56 metformin ER 500 mg tablet,exte nded release 24 hr [address] 2425, [address] [facility], [place], [address], 4 08:52:42 spironolact one 50 mg tablet 2022 023 [facility] 2425, [address] [facility], [place], [address], 3 12:08:47 metformin ER 500 mg tablet,exte nded release 24 hr 2022 023 [place] [address] [facility], [address] [place] [address], [address], 4 08:52:42 spironolact one 50 mg tablet 2022 023 [facility], [address] [place] [address], [address], 3 12:09:49 Synthroid 88 mcg tablet 2022 023 [email or web address] [address] [facility], [address] [facility] , [address], [place], [address], 4 08:53:00 Patient TargetsNo targets recorded. Patient InstructionsNo instructions recorded. Reason for Referral None Reported. Results Created Date Observation Date Name Description Value Unit Range Abnormal Flag Note LastModifiedBy Organization Detail LastModifiedTime 03/14/2003/14/2023 MAMMO , scree hugo, digit al, bilat eral No observ ation record ed. [facility] [address] [facility] [address], [place], [address], 03/15/2023 09:07:31 Result Notes None recorded. Problems Name Problem SNOMED Code Status Onset Date Resolution Date Notes Provider Name and Address Organization Details Recorded Time Adjustment disorder 94698410 Active Not Available [facility] 3 04:49:22 Allergic rhinitis caused by pollen 97574253 Active Not Available [facility] 3 04:49:22 Thyroid nodule 325164840 Active Not Available [facility] 3 04:49:22 Vitamin D deficiency 33953547 Active Not Available [facility] 3 04:49:23 Numbness and tingling sensation of skin 252072938915 Active 2017 Not Available [facility] 3 04:49:22 Urinary incontinen ce 008697403 Active 2017 Not Available [facility] 3 04:49:22 Poor concentrat ion 30533912 Active 2018 Not Available [facility] 3 04:49:23 Polycystic ovary syndrome 546370118 Active 2021 Not Available [facility] 3 04:49:22 Goiter 4165947 Active 2021 Not Available [facility] 3 04:49:23 Hypothyroi dism 50818743 Active 2021 Not Available [facility] 3 04:49:23 Vitamin B12 deficiency (non anemic) 88360246 Active 2021 Not Available [facility] 3 04:49:23 Attention deficit hyperactiv ity disorder 900314422 Active 2022 MARIA LUISA Hart [address] [facility], [address] [address], [place], [address] , [facility] [employer] [facility] 3 10:06:32 Cough 08257923 Active 2022 MARIA LUISA Hart [address] [facility], [address] [address], [place], [address] , [facility] [employer] [facility] 3 10:06:28 Elevated blood-pres sure reading without diagnosis of hypertensi on 891791319 Active 2023 ESTRELLA Najera [address] [facility], [address] [address], [place], [address] , [facility] [employer] [facility] 4 08:41:30 Problem Notes Documentation Provider Name and Address Organization Details Recorded Time Endocrinology Consult Note : [facility] [employer] [address], [facility] [address]EOVYHU, Stacy A (id #[id number], : 1980) Documents [...] received this fax in error, please visit [email or web address] to notify the sender and confirm that the information will be destroyed. If you do not have internet access, please call to notify the sender and confirm that the information will be destroyed. Thank you for your attention and cooperation. [ID:[id number]][facility] [address] [place] [address] , Date: 04/04/2023RE: Ines Montiel, : 1980, [...] FU ON LABS 04/04/2023 - 11:00AM - [facility] [place] Problems:Problems not reviewed (last [...] /16USE TO INJECT B12 EVERY WEEK IN [facility] EDCLNXZY04/29/21 filled MIGRATION.[id number] buPROPion HCL XL 300 mg 24 hr [...] needle 0.5 mL 31 gauge x filled MIGRATION.[id number] metFORMIN ER 500 mg tablet,extended release 24 hrTAKE 1 TABLET BY MOUTH ONCE DAILY WITH DINNER x 90 days04/04/23 prescribed Nurys Perez MD spironolactone 50 mg tabletTAKE 2 TABLETS BY MOUTH EVERY DAY IN THE JFZFVDN42/03/23 prescribed Nurys Perez MD Synthroid 88 mcg tabletTake 1 tablet(s) every day by oral route as directed for 90 days.04/04/23 prescribed Nurys Perez MD ZyrTECstart started MIGRATION.[id number] Family History: Father - Hypertensive disorder - [...] days Qty: (90) tablet Refills: 3 [address]: [facility]003 spironolactone 50 mg tablet - TAKE 2 TABLETS BY MOUTH EVERY DAY IN THE MORNING Qty: (180) tablet Refills: 3 Pharmacy: [facility] 2425 metformin ER 500 mg tablet,extended release 24 hr - TAKE 1 TABLET BY MOUTH ONCE DAILY WITH DINNER x 90 days Qty: (90) tablet Refills: 3 [facility]acy: [facility] spironolactone 50 mg tablet - TAKE 2 TABLETS BY MOUTH EVERY DAY IN THE MORNING Qty: (180) tablet Refills: 3 Pharmacy: [facility] 2. Hypothyroidism-TSH and FT4 in [...] his/her PCP can refer patient to another school inspector in the area. All questions /concerns answered and refills necessary at visit today.E03.9: Hypothyroidism, unspecified Synthroid 88 mcg tablet - Take 1 tablet(s) every day by oral route as directed for 90 days. Qty: (90) tablet Refills: 3 Pharmacy: [facility] Return to Office Patient will return to the office as needed HEMAL Velez [employer] [facility] 04/05/2023 09:43:24 Procedures Surgical History Date Name Laterality Status Provider Name and Address Organization Details Recorded Time Hip surgery completed Lara Castellanos RN [employer] [facility] 04/04/2023 11:55:05 Knee completed Not Available [facility] 07/2022 04:41:57 ligation of bilateral fallopian tubes completed Not Available [facility] 08/31/2022 04:41:57 Sinus [facility] 04:41:57 Imaging Results None recorded. Procedure Notes None recorded. Medical Equipment None Reported. Allergies Allergen ID Allergen Name Allergen Category Reaction Reaction Severity Criticality Documentation Date Start Date Code Code System Note Provider Name and Address Organization Details Recorded Time 7382 Levaquin medicatio n dizziness Not available Not available 08/31/2022 69430 2 RxNorm Not Available [facility] 3 05:00:35 7383 amoxicill in medicatio n rash Not available Not available 08/31/2022 723 RxNorm Not Available [facility] 3 05:00:35 Medications Name Sig Start [...] e 50 mcg/actua tion nasal spray,inderjit pension Hestand 1 spray every day by intranas al [...] USE TO INJECT B12 EVERY WEEK IN [facility] DIRECTED 03/18 /2025 completed Not Available Not [...] Updated DateTime 4 154.94 cm 31.6 kg/m2 15867.9 3 g 96.8 [degF] 99 % 99 % 85 /min 130/86 mm[Hg] Lay Cook RN [facility] 4 09:27:19 Date Recorded Body height Body mass index (BMI) Body weight Body temperature Heart rate Oxygen saturation Oxygen saturation in Arterial blood by Pulse oximetry Pain severity - 0-10 verbal numeric rating [Score] - Reported Systolic And Diastolic Provider Name and Address Organization Details Last Updated DateTime 5 154.94 cm 29.3 kg/m2 51160.8 2 g 98 [degF] 89 /min 99 % 99 % 0 108/68 mm[Hg] Caren Spears MA [employer] [facility] 5 08:38:32 Date Recorded Body height Body mass index (BMI) Body weight Body temperature Heart rate Oxygen saturation Oxygen saturation in Arterial blood by Pulse oximetry Systolic And Diastolic Provider Name and Address Organization Details Last Updated DateTime 4 154.94 cm 31.2 kg/m2 28442.7 4 g 98 [degF] 76 /min 98 % 98 % 120/84 mm[Hg] Eze Caldwell RN [facility] 4 08:52:11 Date Recorded Body height Body mass index (BMI) Body weight Respiratory rate Body temperature Heart rate Systolic And Diastolic Provider Name and Address Organization Details Last Updated DateTime 3 154.94 cm 31.6 kg/m2 73495.9 3 g 14 /min 97.9 [degF] 85 /min 122/88 mm[Hg] Lara Castellanos RN [facility] 3 11:53:29 Date Recorded Systolic And Diastolic Provider Name and Address Organization Details Last Updated DateTime 06/19/2024 116/70 mm[Hg] WINTER N[facility]era-Tee [address], [facility] [address], [place], [address], [place] [employer] [facility] 06/19/2024 08:44:28 Date Recorded Body height Body mass index (BMI) Body weight Body temperature Heart rate Oxygen saturation Oxygen saturation in Arterial blood by Pulse oximetry Provider Name and Address Organization Details Last Updated DateTime 4 154.94 cm 29.7 kg/m2 91535 g 97.7 [degF] 56 /min 98 % 98 % Eze Caldwell RN [place] [employer] [facility] 4 08:34:22 Social History Question Answer Notes LastModified by Organizat ion Details LastModified Time Tobacco Smoking Status Never Smoker Not Available [facility] 08/31/2022 04:15:22 What Is Your Level Of Caffeine Consumption? Moderate MIGRATION.[id number] 3164 Information not available 08/31/2022 How Much Tobacco Do You Chew? None MIGRATION.578063 0579 Information not available 08/31/2022 In The 14 Days Before Symptom Onset, Have You Had Close Contact With A Laboratory-confir med COVID-19 While That Case Was Ill? No MIGRATION.670173 7681 Information not available 08/31/2022 In The 14 Days Before Symptom Onset, Have You Had Close Contact With A Person Who Is Under Investigation For COVID-19 While That Person Was Ill? No MIGRATION.443770 1008 Information not available 08/31/2022 What Type Of Diet Are You Following? REGULAR MIGRATION.281032 7550 Information not available 08/31/2022 Which Illicit Or Recreational Drugs Have You Used? None MIGRATION.816382 7335 Information not available 08/31/2022 Have There Been Any Changes To Your Family Or Social Situation? No Information no t available 09/17/2024 Do You Use Insect Repellent Routinely? No Information not available 09/17/2024 Where Do You Live? [facility] Information not available 09/17/2024 What Was The [...] available 09/17/2024 Do You Participate In Social Lexara? Yes Information not available 09/17/2024 Do You Use Sunscreen Routinely? No Information not available 09/17/2024 Have You Recently Traveled Abroad? No Information not available 09/17/2024 Are You Currently In School? No Information not available 09/17/2024 Do You Have Any Dietary Restrictions? No MIGRATION.469213 7668 Information not available 08/31/2022 Sex: Unknown Functional Status Question Answer Note LastModified by Organizat ion Details LastModified Time Do you or have you ever used any other forms of tobacco or nicotine? No MIGRATION.4472790 026 Information not available 08/31/2022 What is your level of alcohol consumption? None MIGRATION.3894875 026 Information not available 08/31/2022 Do you or have you ever used smokeless tobacco? Never used smokeless tobacco MIGRATION.5026817 026 Information not available 08/31/2022 Are you currently employed? 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 Never used electronic cigarettes MIGRATION.4636285 026 Information not available 08/31/2022 What is your exercise level? None MIGRATION.7860516 026 Information not available 08/31/2022 Mental Status Question Answer Note LastModified by Organization D etails LastModified Time Do you feel stressed (tense, restless, nervous, or anxious, or unable to sleep at night)? [id number] Information not available 09/17/2024 Family History Relationship Description Onset Age of this Age Resolved Age Notes LastModified by Organization Details LastModified Time Father Hypertensive disorder MIGRATION.992 [id number] Not available 08/31/2022 04:42:00 Father Polycythemia vera (clinical) frivastorres Not available 08:28:26 Brother Hypertensive disorder MIGRATION.483 8851224 Not available 08/31/2022 04:42:00 Mother Disorder of thyroid gland MIGRATION.202 1388542 Not available 08/31/2022 04:42:00 Notes:no breast, colon, [...] (COVID-19) vaccine, UNSPECIFIED 1 completed Not Available [facility] 08/31/2022 05:00:13 Influenza, split virus, quadrivalent, PF 2 completed Not Available [facility] 08/31/2022 05:00:13 Influenza, split virus, quadrivalent, PF 8 completed Not Available [facility] 08/31/2022 05:00:13 Influenza, split virus, quadrivalent, PF 1 completed Not Available [facility] 08/31/2022 05:00:13 Influenza, split virus, quadrivalent, PF 9 completed Not Available [facility] 08/31/2022 05:00:13 Influenza, split virus, quadrivalent, PF 4 completed ESTRELLA Tinajero [address] [facility], [facility] [address], [place], [address], [facility] [employer] [facility] 07/12/2023 09:53:41 Past Encounters Encounter ID Performer Location Encounter Start Date Encounter Closed Date Diagnosis/Indication Diagnosis SNOMED-CT Code Diagnosis ICD10 Code Diagnosis Note [id number] Nurys Perez MD [facility] [address] [place] [address] 10/23/2020 00:00:00 10/23/2020 09:06:08 [id number] Nurys Perez MD [facility] [address] [place] [address] 01/22/2021 00:00:00 01/22/2021 14:48:49 [id number] Flavia Torrez MD [facility] [address] [place] [address] 02/03/2021 00:00:00 02/03/2021 18:16:46 [id number] Flavia Torrez MD [facility] [address] [place] [address] 03/18/2021 00:00:00 03/18/2021 22:48:30 [id number] Nurys Perez MD [facility] [address] [place] [address] 05/31/2021 00:00:00 05/31/2021 10:52:51 [id number] Flavia Torrez MD [facility] [address] [place] [address] [address]IVE [address] [place] [address] 07/23/2021 00:00:00 07/23/2021 15:34:07 [id number] [facility] [address] [place] [address] 11/08/2021 00:00:00 11/08/2021 16:09:49 [id number] MARIA LUISA Hart [facility] [address] [place] [address] 12/10/2021 00:00:00 12/10/2021 11:33:56 [id number] MARIA LUISA Hart [facility] [address] [place] [address] 03/30/2022 00:00:00 03/30/2022 13:16:12 [id number] [address] Perez MD [facility] [address] [place] [address] 05/09/2022 00:00:00 05/09/2022 13:12:15 [id number] MARIA LUISA Hart [facility] Primary Care [facility] [address] [facility] [address] [place] [address] 07/22/2022 00:00:00 07/22/2022 11:12:11 [id number] Flavia Torrez MD [address] [place] [address] 12/16/2022 09:45:21 12/16/2022 10:33:37 Attention deficit hyperactivity disorder 327083603 F90.9 Stable. Continue dextroamph etamine-am phetamine 30mg daily. No refill needed today.Pt denies any lending, selling, or borrowing of medication s.UDS updated today. Long-term drug therapy 655209726 Z79.899 Cough 80876856 R05.9 Post-nasal drainage.W ill start daily flonase, continue daily allergy pill. [id number] Nurys Perez MD [facility] [place] [address] [place] [address] 04/04/2023 11:46:06 04/04/2023 12:46:17 Polycystic ovary syndrome 449171264 E28.2 Insulin and fasting glucose in range- her labs were actually drawn later in day- testostero ne pending and dheas not reliable due to inadequate timing. Continue on metformin for insulin sensitizat ion. Continue spironolac tone as patient tolerating well and she has good energy and no concerns of hair loss or hirsutism at this time. Hypothyroidism 96927402 E03.9 TSH and FT4 in range- continue [...] answered and refills necessary at visit today. [id number] ESTRELLA Tinajero [facility] Primary Care [address] [place] [address] 07/12/2023 09:20:18 07/12/2023 13:51:52 Attention deficit hyperactivity disorder 091616532 F90.9 -chronic, stable with use of dextro-amp hetamine 30mg-no complaints per pt-no refill needed today-Pt denies any lending, selling, or borrowing of medication s. Long-term drug therapy 459678310 Z79.899 UDS up to date Administra tion of influenza vaccine 34709839 Z23 [id number] ESTRELLA Najera [facility] Primary Care [address] [place] [address] 03/20/2024 08:46:15 03/20/2024 09:11:51 Adult health examination 978588888 Z00.00 Discussed medication compliance and routine follow up.Discuss ed healthy diet and routine exercise.Duane elkinswed vaccine records and made recommenda tions as needed.Enc ouraged annual eye and dental exams, as well as twice yearly dental cleanings. Will check screening labs as listed below.Mamm ogram scheduled in lonoscopy- age 46 Long-term drug therapy 683600502 Z79.899 Attention deficit hyperactivity disorder 128484785 F90.9 [place] obtained today.Wait ing for medical records from Jody Penaloza before restarting Adderall. Hypothyroidism 67742475 E03.9 patient follows endocrinol ogy-next appt in May. Vitamin D deficiency 347 08612 E55.9 [id number] ESTRELLA Najera [facility] Primary Care [address] [place] [address] 06/19/2024 08:27:35 06/19/2024 08:42:27 Attention deficit hyperactivity disorder 653104767 F90.9 Patient is doing well on current medication s, no concerns at this time. Will continue to refill and follow up every 3 months per [facility].[place] verified.U DS UTDlast fill: 06/04/24 Elevated blood-pressure reading without diagnosis of hypertension 419705238 R03.0 158/72 usstret269 /70 recheck [id number] ESTRELLA Najera [facility] Primary Care [facility] [address] [facility] [address] [place] [address] 09/17/2024 08:30:05 09/17/2024 08:47:02 Adjustment disorder 11798099 F43.20 Doing well on current medication s, no concerns at this time. Attention deficit hyperactivity disorder 379174822 F90.9 Doing well on current medication s, no concerns at this time. Hypothyroidism 32782095 E03.9 Follows endocrinol ogy, doing well at this time. Health Concerns Section Related Observation LastModified by Organization Detai ls LastModified Time None Recorded Concern Status LastModified by Organization Details LastModified Time None Recorded Advance Directives Directive None Recorded Payers Insurance Date Sequence Insurance Name Policy Number Policy Robbins Covered Member ID Robbins Member ID Guarantor Name 09/14/2024 1 [facility] [id number] Ines Montiel [id number] Ines Montiel Notes Date Note Type Note [...] ug/ml but nonfasting Nurys Perez MD [address], [place], [address], [employer] 04/04/2023 14:41:27 07/12/2023 text/html Pt is here for 6 month f/u ESTRELLA Tinajero [address], [place], [address], [employer] [facility] 07/12/2023 09:56:43 03/20/2024 text/html Patient is a 43 year old female that presents to the office for annual wellness. Patient reports she is doing well and has no concerns at this time including chest pain and shortness of breath, nausea vomiting and diarrhea. Patient sees endocrinology at [place], follows up in May and is scheduled to have labs drawn in April. 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 This was last prescribed by Jigna Penaloza at [facility]. Patient states I went to see her when I couldn't get in here for an appointment. Discussed with patient that she cannot have two primary care providers-will obtain medical records. labs-orderedMammogra m- scheduled in - Octoberolonoscopy-age [id number] ap-aware ESTRELLA Najera [address], [place], [address], [employer] [facility] 03/20/2024 11:51:11 06/19/2024 text/html Patient is a 44 year old female that presents to the office for 3 month follow up. Patient is doing well on current medications and has no concerns at this time including chest pain and shortness of breath. ESTRELLA Najera [address], [place], [address], [place] [employer] [facility] 06/19/2024 08:45:10 09/17/2024 text/html Patient is a 44 year old female that presents to the office for 3 month follow up. Patient is doing well on current medications and has no concerns at this time. WINTER Najera-Tee [address] [facility], [facility] [address], [place], [address], [employer] [facility] 09/17/2024 08:48:48 OBGyn Episode No OBEpisode recorded.
== END 2025-01-23 09:44 | disposition home or self-care (01) ==
LOC: CHSIMG 09:45
PROVIDERS: PCP Nurse Practitioner; Visit Provider Obstetrics & Gynecology Gynecology
DX: R92.8 Other abnormal and inconclusive findings on diagnostic imaging of breast (principal)
CPT/HCPCS: 77061; 77065; G0279

== ENCOUNTER 2025-05-13 15:19 | Outpatient (CLI) | payer OTHER, SELFPAY ==
--- NOTE | ~2025-05-13 | US_ITS ---
EXAMINATION: US thyroid DATE: 05/13/2025 15:59 INDICATION: Nodule TECHNIQUE: Multiple ultrasound images of the thyroid were obtained. COMPARISON: January 20, 2021 FINDINGS: The right thyroid lobe measures 5.9 x 1.8 x 1.9 cm. The left thyroid lobe measures 6.5 x 2.2 x 2.1 cm. Isthmus: 2 mm Multiple nodules are noted throughout the thyroid gland with TI-RADS 3 classification. The largest in the right lobe is 1.8 x 1.4 cm with TI-RADS 3 classification. Smaller sonographically indeterminate nodules are noted as well, not clearly changed from the previous exam. The largest on the left side is approximately 2.0 x 1.8 cm IMPRESSION: 1. Sonographically indeterminate nodules in both the left and right lobe of the thyroid. 2. Given history provided of benign FNA findings, findings are likely representing benign multinodular goiter. Correlation with follow-up thyroid ultrasound is recommended in 12 months with recommended. RECOMMENDATION: Follow-up thyroid ultrasound in 12 months with recommended date of next exam on or about May 13, 2026. Reviewed, dictated and finalized at location A. [employer] [facility] IMPRESSION: 1. Sonographically indeterminate nodules in both the left and right lobe of the thyroid. 2. Given history provided of benign FNA findings, findings are likely represent ing benign multinodular goiter. Correlation with follow-up thyroid ultrasound i s recommended in 12 months with recommended. RECOMMENDATION: Follow-up thyroid ultrasound in 12 months with recommended date of next exam on or about May 13, 2026.
== END 2025-05-13 15:20 | disposition home or self-care (01) ==
LOC: MICIMG 15:20
PROVIDERS: PCP Nurse Practitioner; Visit Provider Internal Medicine Endocrinology, Diabetes & Metabolism
DX: E04.1 Nontoxic single thyroid nodule (principal)
CPT/HCPCS: 76536

== ENCOUNTER 2025-05-16 06:58 | Outpatient (CLI) | payer OTHER, SELFPAY ==
--- OUTSIDE RECORDS SUMMARY | 2025-05-16 07:02 | XMS_ITS | Clinical Summary ---
Author Organization [facility] Address [address] [place] [id number] Care Team Providers Care Ground Hand Name Role Phone Flavia Torrez MD Primary Care Provider [phone] Social History Tobacco Use Types Packs/Day Years [...] Mammogram Screening 2021 COVID-19 Vaccine ( season) 2025 05/07/2021, 09/01/2020, 07/30/2020, Additional history exists Influenza Adult (#1) 2025 03/30/2022, 08/06/2020, 03/26/2019, Additional history exists DTaP, Tdap and Td Vaccines (2 - Td or Tdap) 10/24/2028 10/24/2018 Hepatitis A Vaccines Aged Out No long er eligible based on patient's age to complete [...] to complete this topic Insurance [facility] Care Teams Ground Hand Relationship Specialty Start Date End Date Flavia Torrez MD [address] [place] [address] [place] [address] PCP - General FAMILY PRACTICE 05/10/22
--- OUTSIDE RECORDS SUMMARY | 2025-05-16 07:02 | XMS_ITS | Data Portability ---
Author Organization [place] [facility], Main Office Address [address] [place] [address] Assessment No assessment recorded. Plan of Treatment Reminders Order Date Submit Date Provider Last Modified By Organization Details Last Modified Time Details Appointments Follow Up 15 2024 08:45A Joseph Hart NP Not available Not available Not available Lab drug of abuse panel, urine 2024 025 [employer] [facility], [address] [facility], [place], [address], 03/27/2025 05:07:06 vitamin D, 25-hydrox y, total, serum [email or web address] (Lab), [address] [place] [address], [phone], 04/02/2024 08:08:49 drug of abuse panel, urine 2023 024 [facility] (Lab), [address] [place] [address], [phone], 03/20/2024 19:33:29 CBC w/ auto diff [address] [place] [address] (Lab), [address] [place] [address], [phone], 04/02/2024 08:08:48 CMP, serum or plasma 2023 [id number] [place] [address] (Lab), [address] [place] [address], [phone], 04/02/2024 08:08:48 lipid panel, serum [address] (Lab), [address] [place] [address], [address], 04/02/2024 08:08:48 HbA1c (hemoglob in A1c), blood [address] (Lab), [address] [place] [address], [phone], 04/02/2024 08:08:48 Referral None recorded. Procedures None recorded. Surgeries None recorded. Imaging None recorded. Medication Orders dextroamp hetamine- amphetami ne ER 30 mg 24hr capsule,e xtend release 2024 [address], [address] [place], [address], 03/24/2025 09:31:27 bupropion HCl XL 300 mg 24 hr tablet, extended release 2024 025 [place] [employer] [facility], [address] [place] [address], [address], 09/17/2024 08:45:46 dextroamp hetamine- amphetami ne ER 30 mg 24hr capsule,e xtend release 2023 024 [facility] 2425, [address] [facility], [place], [address], 06/19/2024 08:44:56 Patient TargetsNo targets recorded. Patient InstructionsNo instructions recorded. Reason for Referral None Reported. Results Created Date Observation Date Name Description Value Unit Range Abnormal Flag Note LastModifiedBy Organization Detail LastModifiedTime Result Notes None recorded. Problems Name Problem SNOMED Code Status Onset Date Resolution Date Notes Provider Name and Address Organization Details Recorded Time Adjustment disorder 68332325 Active Not Available [facility] 3 04:49:22 Allergic rhinitis caused by pollen 67059701 Active Not Available [facility] 3 04:49:22 Thyroid nodule 130432136 Active Not Available [facility] 3 04:49:22 Vitamin D deficiency 61151750 Active Not Available [facility] 3 04:49:23 Numbness and tingling sensation of skin 131335006659 Active 2017 Not Available [facility] 3 04:49:22 Urinary incontinen ce 019981976 Active 2017 Not Available [facility] 3 04:49:22 Poor concentrat ion 33477457 Active 2018 Not Available [facility] 3 04:49:23 Polycystic ovary syndrome 017578299 Active 2021 Not Available [facility] 3 04:49:22 Goiter 5231821 Active 2021 Not Available [facility] 3 04:49:23 Hypothyroi dism 32394051 Active 2021 Not Available [facility] 3 04:49:23 Vitamin B12 deficiency (non anemic) 24056524 Active 2021 Not Available [facility] 3 04:49:23 Attention deficit hyperactiv ity disorder 871052383 Active 2022 ESTRELLA Najera [address] [employer], [place] [address], [place], [address] , [facility] [employer] 5 09:26:41 Cough 61586517 Active 2022 MARIA LUISA Hart [address], [address], [place], [address] , [employer] [facility] [employer] 3 10:06:28 Elevated blood-pres sure reading without diagnosis of hypertensi on 213243317 Active 2023 ESTRELLA Najera [address] [employer], [address], [place], [address] , [facility] [employer] [facility] [employer] 4 08:41:30 Problem Notes None recorded. Procedures Surgical History Date Name Laterality Status Provider Name and Address Organization Details Recorded Time 3 Hip surgery completed Lara Castellanos RN [facility] [employer] [employer] [facility] 04/04/2023 11:55:05 Knee completed Not Available [facility] 07/2022 04:41:57 ligation of bilateral fallopian tubes completed Not Available [facility] 08/31/2022 04:41:57 Sinus Surgery completed Not Available [facility] 08/31/2022 04:41:57 Imaging Results None recorded. Procedure Notes None recorded. Medical Equipment None Reported. Allergies Allergen ID Allergen Name Allergen Category Reaction Reaction Severity Criticality Documentation Date Start Date Code Code System Note Provider Name and Address Organization Details Recorded Time 7382 Levaquin medicatio n dizziness Not available Not available 08/31/2022 56313 2 RxNorm Not Available [facility] 3 05:00:35 7383 amoxicill in medicatio n rash Not available Not available 08/31/2022 723 RxNorm Not Available [facility] 3 05:00:35 Medications Name Sig Start Date [...] completed Not Available Not Available Not Available azithromy ian 250 mg tablet TAKE 2 TABLETS BY MOUTH ON DAY 1, AND THEN TAKE 1 TABLET BY MOUTH ONCE A DAY ON DAY 2 THROUGH DAY 5 03/24 completed Not Available Not Available Not Available benzonata te 200 mg capsule Take 1 capsule 3 times a day by oral route as needed. 04/04 completed Not Available Not Available Not Available valacyclo vir 1 gram tablet TAKE 1 TABLET BY MOUTH THREE TIMES DAILY FOR 7 DAYS 03/24 completed Not Available Not Available Not Available [...] completed Not Available Not Available Not Available lidocaine HCl 2 % mucosal solution TAKE 5 ML BY MOUTH 4 TIMES DAILY NEEDED FOR PAIN FOR 10 DAYS active Not Available Not Available No t Available dextroamp hetamine- amphetami ne ER 10 [...] completed Not Available Not Available Not Available methylpre dnisolone 4 mg tablets in a dose pack TAKE BY MOUTH DIRECTED ON INSIDE OF PACKAGE 03/24 completed Not Available Not Available Not Available [...] e 50 mcg/actua tion nasal spray,inderjit pension [place] 1 spray every day by intranas al route. 04/04 completed Not Available Not Available Not Available metformin ER 500 mg tablet,ex tended release 24 hr TAKE 1 TABLET BY MOUTH ONCE DAILY WITH DINNER x 90 days 03/20 completed pt states medicati on made her sick Not Available Not Available Not Available insulin syringe U-100 with needle 0.5 mL 31 gauge x /16 09/17 completed Not Available Not Available Not [...] USE TO INJECT B12 EVERY WEEK IN [place]LLY DIRECTED 09/17 completed Not Available Not Available [...] Updated DateTime 4 154.94 cm 31.6 kg/m2 66174.9 3 g 96.8 [degF] 99 % 99 % 85 /min 130/86 mm[Hg] Lay Cook RN [facility] [employer] 4 09:27:19 Date Recorded Body height Body mass index (BMI) Body weight Body temperature Heart rate Oxygen saturation Oxygen saturation in Arterial blood by Pulse oximetry Pain severity - 0-10 verbal numeric rating [Score] - Reported Systolic And Diastolic Provider Name and Address Organization Details Last Updated DateTime 5 154.94 cm 29.3 kg/m2 14642.8 2 g 98 [degF] 89 /min 99 % 99 % 0 108/68 mm[Hg] Caren Spears MA [facility] [employer] 5 08:38:32 Date Recorded Body height Body mass index (BMI) Body weight Body temperature Heart rate Oxygen saturation Oxygen saturation in Arterial blood by Pulse oximetry Systolic And Diastolic Provider Name and Address Organization Details Last Updated DateTime 4 154.94 cm 31.2 kg/m2 00097.7 4 g 98 [degF] 76 /min 98 % 98 % 120/84 mm[Hg] Eze Caldwell RN [facility] 4 08:52:11 Date Recorded Body height Body mass index (BMI) Body weight Body temperature Heart rate Oxygen saturation Oxygen saturation in Arterial blood by Pulse oximetry Systolic And Diastolic Provider Name and Address Organization Details Last Updated DateTime 5 154.94 cm 28 kg/m2 50445.6 7 g 97.3 [degF] 85 /min 98 % 98 % 116/78 mm[Hg] ChristopherCELIA Murrell [facility] 5 09:22:23 Date Recorded Systolic And Diastolic Provider Name and Address Organization Details Last Updated DateTime 06/19/2024 116/70 mm[Hg] ESTRELLA Najera [address] [place] [address], [facility] [address], [place], [address], [facility] 06/19/2024 08:44:28 Date Recorded Body height Body mass index (BMI) Body weight Body temperature Heart rate Oxygen saturation Oxygen saturation in Arterial blood by Pulse oximetry Provider Name and Address Organization Details Last Updated DateTime 4 154.94 cm 29.7 kg/m2 05097 g 97.7 [degF] 56 /min 98 % 98 % Eze Caldwell RN [facility] 4 08:34:22 Social History Question Answer Notes LastModified by Organizat ion Details LastModified Time Tobacco Smoking Status Never Smoker Not Available [employer] 08/31/2022 04:15:22 What Is Your Level Of Caffeine Consumption? Moderate [id number] Information not available 08/31/2022 How Much Tobacco Do You Chew? None [id number].[id number] Information not available 08/31/2022 In The 14 Days Before Symptom Onset, Have You Had Close Contact With A Laboratory-confir med COVID-19 While That Case Was Ill? No [id number] Information not available 08/31/2022 In The 14 Days Before Symptom Onset, Have You Had Close Contact With A Person Who Is Under Investigation For COVID-19 While That Person Was Ill? No MIGRATION.[id number] Information not available 08/31/2022 What Type Of Diet Are You Following? REGULAR MIGRATION.[id number] Information not available 08/31/2022 Which Illicit Or Recreational Drugs Have You Used? None MIGRATION.[id number] 2600 Information not available 08/31/2022 Have There Been Any Changes To Your Family Or Social Situation? No Information no t available 09/17/2024 Do You Use Insect Repellent Routinely? No Information not available 09/17/2024 Where Do You Live? [facility] Information not available 09/17/2024 What Was [...] Do You Have Any Dietary Restrictions? No MIGRATION.321265 5363 Information not available 08/31/2022 Sex: Unknown Functional Status Question Answer Note LastModified by Organizat ion Details LastModified Time Do you or have you ever used any other forms of tobacco or nicotine? No MIGRATION.[id number] 026 Information not available 08/31/2022 What is your level of alcohol consumption? None MIGRATION.[id number] 026 Information not available 08/31/2022 Do you or have you ever used smokeless tobacco? Never used smokeless tobacco MIGRATION.5331936 026 Information not available 08/31/2022 Are you currently employed? 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 Never used electronic cigarettes MIGRATION.3934807 026 Information not available 08/31/2022 What is your exercise level? None MIGRATION.[id number] 026 Information not available 08/31/2022 Mental Status Question Answer Note LastModified by Organization D etails LastModified Time Do you feel stressed (tense, restless, nervous, or anxious, or unable to sleep at night)? [id number] Information not available 09/17/2024 Family History Relationship Description Onset Age of this Age Resolved Age Notes LastModified by Organization Details LastModified Time Father Hypertensive disorder [id number] Not available 08/31/2022 04:42:00 Father Polycythemia vera (clinical) frivastorres Not available 08:28:26 Brother Hypertensive disorder [id number] [id number] Not available 08/31/2022 04:42:00 Mother Disorder of thyroid gland MIGRATION.104 [id number] Not available 08/31/2022 04:42:00 Notes:no breast, colon, [...] e and Address Organization Details Recorded Time Influenza, split virus, trivalent, PF 7 completed Not Available [employer] 03/24/2025 09:10:33 Tdap 9 completed Not Available [facility] 03/24/2025 09:10:33 COVID-19, mRNA, LNP-S, PF, 100 mcg/0.5mL dose or 50 mcg/0.25mL dose 1 completed Not Available [facility] 03/24/2025 09:10:33 COVID-19, mRNA, LNP-S, PF, 100 mcg/0.5mL dose or 50 mcg/0.25mL dose 1 completed Not Available [facility] 03/24/2025 09:10:33 Influenza, split virus, trivalent, PF 4 completed Not Available [facility] 03/24/2025 09:10:33 SARS-COV-2 (COVID-19) vaccine, UNSPECIFIED 1 completed Not Available [facility] 08/31/2022 05:00:13 Influenza, split virus, quadrivalent, PF 2 completed Not Available [facility] 08/31/2022 05:00:13 Influenza, split virus, quadrivalent, PF 8 completed Not Available [facility] 08/31/2022 05:00:13 Influenza, split virus, quadrivalent, PF 1 completed Not Available [facility] 08/31/2022 05:00:13 Influenza, split virus, quadrivalent, PF 9 completed Not Available [facility] 08/31/2022 05:00:13 Influenza, split virus, quadrivalent, PF 4 completed ESTRELLA Tinajero [address] [facility] [address], [place], [address], [facility], [facility] 07/12/2023 09:53:41 Past Encounters Encounter ID Performer Location Encounter Start Date Encounter Closed Date Diagnosis/Indication Diagnosis SNOMED-CT Code Diagnosis ICD10 Code Diagnosis IMO Codes Diagnosis Note [id number] Lexie Schneider MD [facility] [place] [address] [place] [address] 10/23/2020 00:00:00 10/23/2020 09:06:08 [id number] Lexie Schneider MD [facility] [place] [address] [place] [address] 01/22/2021 00:00:00 01/22/2021 14:48:49 [id number] Flavia Torrez MD [facility] [place] [address] [place] [address] 02/03/2021 00:00:00 02/03/2021 18:16:46 [id number] Flavia Torrez MD [facility] [place] [address] [place] [address] 03/18/2021 00:00:00 03/18/2021 22:48:30 [id number] Lexie Schneider MD [facility] [place] [address] [place] [address] 05/31/2021 00:00:00 05/31/2021 10:52:51 [id number] Flavia Torrez MD [facility] [place] [address] [place] [address] 07/23/2021 00:00:00 07/23/2021 15:34:07 [id number] [facility] [place] [address] [place] [address] 11/08/2021 00:00:00 11/08/2021 16:09:49 [id number] MARIA LUISA Hart [facility] [place] [address] [place] [address] 12/10/2021 00:00:00 12/10/2021 11:33:56 [id number] MARIA LUISA Hart [facility] [place] [address] [place] [address] 03/30/2022 00:00:00 03/30/2022 13:16:12 [id number] Lexie Schneider MD [facility] [place] [address] [place] [address] 05/09/2022 00:00:00 05/09/2022 13:12:15 [id number] MARIA LUISA Hart [facility] Primary Care [facility] [address] [facility] [facility] [place] [address] 07/22/2022 00:00:00 07/22/2022 11:12:11 [id number] Flavia Torrez MD [facility] Primary Care [facility] [address] [facility] [place] [address] 12/16/2022 09:45:21 12/16/2022 10:33:37 Attention deficit hyperactivity disorder 515467805 F90.9 Stable. Continue dextroamph etamine-am phetamine 30mg daily. No refill needed today.Pt denies any lending, selling, or borrowing of medication s.UDS updated today. Long-term drug therapy 069587676 Z79.899 Cough 20345127 R05.9 Post-nasal drainage.W ill start daily flonase, continue daily allergy pill. [id number] Lexie Schneider MD [facility] [place] [address] [place] [address] 04/04/2023 11:46:06 04/04/2023 12:46:17 Polycystic ovary syndrome 851487988 E28.2 Insulin and fasting glucose in range- her labs were actually drawn later in day- testostero ne pending and dheas not reliable due to inadequate timing. Continue on metformin for insulin sensitizat ion. Continue spironolac tone as patient tolerating well and she has good energy and no concerns of hair loss or hirsutism at this time. Hypothyroidism 24167721 E03.9 TSH and FT4 in range- continue [...] answered and refills necessary at visit today. [id number] ESTRELLA Tinajero [facility] Primary Care [address] [place] [address] 07/12/2023 09:20:18 07/12/2023 13:51:52 Attention deficit hyperactivity disorder 620780621 F90.9 -chronic, stable with use of dextro-amp hetamine 30mg-no complaints per pt-no refill needed today-Pt denies any lending, selling, or borrowing of medication s. Long-term drug therapy 020148890 Z79.899 UDS up to date Administra tion of influenza vaccine 47382632 Z23 [id number] ESTRELLA Najera [facility] Primary Care [address] [place] [address] 03/20/2024 08:46:15 03/20/2024 09:11:51 Adult health examination 512547217 Z00.00 Discussed medication compliance and routine follow up.Discuss ed healthy diet and routine exercise.R pandaiewed vaccine records and made recommenda tions as needed.Enc ouraged annual eye and dental exams, as well as twice yearly dental cleanings. Will check screening labs as listed below.Mamm ogram scheduled in lonoscopy- age 46 Long-term drug therapy 372917077 Z79.899 Attention deficit hyperactivity disorder 393243795 F90.9 [place] obtained today.Wait ing for medical records from Jody Penaloza before restarting Adderall. Hypothyroidism 92770130 E03.9 patient follows endocrinol ogy-next appt in May. Vitamin D deficiency 347 95564 E55.9 [id number] ESTRELLA Najera [facility] Primary Care [facility] [address] [facility] [address] [place] [address] 06/19/2024 08:27:35 06/19/2024 08:42:27 Attention deficit hyperactivity disorder 452642541 F90.9 Patient is doing well on current medication s, no concerns at this time. Will continue to refill and follow up every 3 months [place] DS UTDlast fill: 06/04/24 Elevated blood-pressure reading without diagnosis of hypertension 716155366 R03.0 158/72 [id number] /70 recheck [id number] ESTRELLA Najera [facility] Primary Care [address] [place] [address] 09/17/2024 08:30:05 09/17/2024 08:47:02 Adjustment disorder 67786188 F43.20 Doing well on current medication s, no concerns at this time. Attention deficit hyperactivity disorder 494791712 F90.9 Doing well on current medication s, no concerns at this time. Hypothyroidism 39787416 E03.9 Follows endocrinol ogy, doing well at this time. [id number] ESTRELLA Najera [facility] [address] [facility] [place] [address] 03/24/2025 09:08:24 03/24/2025 09:34:23 Long-term current use of drug therapy 156079823 Z79.899 24918900 Attention deficit hyperactivity disorder 048418110 F90.9 Doing well on current medication s, no concerns at this time. Health Concerns Section Related Observation LastModified by Organization Detai ls LastModified Time None Recorded Concern Status LastModified by Organization Details LastModified Time None Recorded Advance Directives Directive None Recorded Payers Insurance Date Sequence Insurance Name Policy Number Policy Robbins Covered Member ID Robbins Member ID Guarantor Name 03/21/2025 1 [facility] [id number] Ines John [id number] Ines John Notes Date Note Type Note Provider Name and Address Organization Details Recorded Time 07/12/2023 text/html Pt is here for 6 month f/u ESTRELLA Tinajero [address], [place], [address], Note 07/12/2023 09:56:43 03/20/2024 text/html ROS as noted in the HPI Patient is a 43 year old female that presents to the office for annual wellness. Patient reports she is doing well and has no concerns at this time including chest pain and shortness of breath, nausea vomiting and diarrhea. Patient sees endocrinology at [place], follows up in May and is scheduled to have labs drawn in April. 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 This was last prescribed by Jigna Penaloza at [facility]. Patient states I went to see her when I couldn't get in here for an appointment. Discussed with patient that she cannot have two primary care providers-will obtain medical records. labs-orderedMammogr am- scheduled in - Octoberolonoscopy-age 45Gah-[id number]-ZPVF dap-aware ESTRELLA Najera [address], [place], [address], Note 03/20/2024 11:51:11 06/19/2024 text/html ROS as noted in the HPI Patient is a 44 year old female that presents to the office for 3 month follow up. Patient is doing well on current medications and has no concerns at this time including chest pain and shortness of breath. ESTRELLA Najera [address], [place], [address], Note 06/19/2024 08:45:10 09/17/2024 text/html ROS as noted in the HPI Patient is a 44 year old female that presents to the office for 3 month follow up. Patient is doing well on current medications and has no concerns at this time. ESTRELLA Najera [address], [place], [address], Note 09/17/2024 08:48:48 03/24/2025 text/html Patient is a 44 year old female that presents to the office for 3 month follow up. Patient reports she is doing well on current medications and has no concerns at this time. Leah Hart, [employer] [address] [facility], [facility] [address], [place], [address], [facility], [place] [facility] 03/24/2025 09:32:26 OBGyn Episode No OBEpisode recorded.
--- OUTSIDE RECORDS SUMMARY | 2025-05-16 07:02 | XMS_ITS | Encounter Summary ---
Author Organization [facility] Address [address] [place] [address] Care Team Providers Care Boy'S Adviser Name Role Phone Lucinda Cummings MD Primary Care Provider Unavailable Flavia Torrez MD Primary Care Provider [phone] Encounter Details Date Type Department Care Team (Late st Contact Info) Description 05/06/2017 Abstract [place] [address] Lucinda Cummings MD Social History Tobacco Use [...] on filedocumented in this encounter Care Teams Boy'S Adviser Relationship Specialty Start Date End Date Lucinda Cummings MD PCP - General 11/22/14 Flavia Torrez MD [address] [place] [address] [place] [address] PCP - General FAMILY PRACTICE 05/10/22 documented as of this encounter
--- OUTSIDE RECORDS SUMMARY | 2025-05-16 07:02 | XMS_ITS | Encounter Summary ---
Author Organization [facility] Address [address] [place] [address] Care Team Providers Care Cad Drafter Name Role Phone Flavia Torrez MD Primary Care Provider [phone] Encounter Details Date Type Department Care Team (Late st Contact Info) Description 11/24/2022 [address] Message [facility] Patient Accounts [address] [place] [address] [facility] Action Needed Social History Tobacco [...] on filedocumented in this encounter Care Teams Cad Drafter Relationship Specialty Start Date End Date Flavia Torrez MD [address] [place] [address] [place] [address] PCP - General FAMILY PRACTICE 05/10/22 documented as of this encounter
--- OUTSIDE RECORDS SUMMARY | 2025-05-16 07:02 | XMS_ITS | Clinical Summary ---
Author Organization [facility] Address [facility] [place] [address] Care Team Providers Care Jig Builder Helper Name Role Phone Jigna Penaloza NP Primary Care Provider [phone] Allergies Active Allergy Reactions Criticality Noted Date [...] 08/11/2023 Assessment & Plan (08/11/2023 1:43 PM MAINTENANCE APPRENTICE): Discussed the patients BMI: The BMI is above average BMI management is complete. BMI follow-up includes: Nutrition Counseling and education provided Physical exam, annual 08/11/2023 Acquired hypothyroidism 08/11/2023 Attention deficit hyperactiv ity disorder (ADHD), predominantly inattentive type 08/11/2023 Cough 12/16/2022 Femoroacetabular impingement of right hip 2022 Overview (08/30/2022): Added automatically from request for surgery [id number] Labral tear of hip, degenerative 08/30/2022 Overview (08/30/2022): Added automatically from request for surgery [id number] Polycystic ovary syndrome 11/08/2021 Vitamin B12 deficiency [...] on file Legal Sex Female 3:30 AM MAINTENANCE APPRENTICE Gender Identity Not on file Sexual Orientation Not on file 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 on file Not on file Not on file Last Filed Vital Signs Vital Sign Reading Time Taken Comments Blood Pressure 110/80 08/11/2023 1:35 PM MAINTENANCE APPRENTICE Pulse 100 08/11/2023 1:35 PM MAINTENANCE APPRENTICE Temperature 36.8 C (98.3 F) 08/11/2023 1:35 PM MAINTENANCE APPRENTICE Respiratory Rate 25 10/03/2022 10:20 AM CDT Oxygen Saturation 97% 08/11/2023 1:35 PM MAINTENANCE APPRENTICE Inhaled Oxygen Concentration - - Weight 74.4 kg (164 lb) 08/11/2023 1:35 PM MAINTENANCE APPRENTICE Height 154.9 cm (5' 1) 08/11/2023 1:35 PM MAINTENANCE APPRENTICE Body Mass Index 30.99 08/11/2023 1:35 PM MAINTENANCE APPRENTICE Plan of Treatment Health Maintenance Due Date Last Done Comments Breast Cancer Screening-Mammogram 1981 Cervical Cancer Screening 1981 Hepatitis C Screening 1981 DTaP/Tdap/Td Vaccine (1 - Tdap) 1992 Varicella Vaccines (1 of 2 - 13+ 2-dose series) 1994 Hepatitis B Screening 1999 Pneumococcal vaccine <65 (1 of 2 - PCV) 2000 HPV Vaccines (1 - 3-dose SCD M series) 2008 Depression Screening 08/11/2024 08/11/2023 Regular Well Visit/Exam 18-64 08/11/2024 08/11/2023 Covid-19 Vaccine (2024-2 6 season) 2025 05/07/2021, 09/01/2020, 07/30/2020 Influenza Vaccine (#1) 2025 , 07/12/2023, 03/30/2022, Additional history exists Medical Devices Implanted Type Area Steward/Stewardess Lounge Device Identifier Shelf Expiration Date Model / Serial / Lot [facility] [employer] Lock Ruth Suture Labrum [id number] - [id number] Implanted:Qty: 1 on 10/03/2022 by Elva Kramer MD at [facility] Right: Hip [facility] 10/19/2022 [id number] / / [id number] [facility] [employer] Lock Ruth Suture Labrum [id number] - [id number] Implanted:Qty: 1 on 10/03/2022 by Elva Kramer MD at [facility] Right: Hip [facility] 12/14/2023 [id number] / / [id number] [employer] Administrator Lock Ruth Suture Labrum [id number] - [id number] Implanted:Qty: 1 on 10/03/2022 by Elva Kramer MD at [facility] Right: Hip [facility] 12/14/2023 [id number] / / [id number] Explanted Type Area Steward/Stewardess Lounge Device Identifier Shelf Expiration Date Model / Serial / Lot [employer] Xbraid 1.2mm Suture Nonabsorbable Titanium Uhmwpe Nonsterile [id number] - [id number] Explanted:Qty: 1 on 10/03/2022 at [facility] Right: Hip [facility] [id number] / / Description:Item built in Ep ic as implant. Added to this screen to correct charge on supply screen K[place] [id number] Insurance [facility] CHO[facility] PLUS [facility] CHO[facility] PLUS [facility] CHOICE PLUS Care Teams Jig Builder Helper Relationship Specialty Start Date End Date Jigna Penaloza NP [address] [facility] [address] [place] [address] PCP - General Internal Medicine 08/11/23
[2025-05-16 08:11] LABS: Free T4 Free Thyroxine 1.02 ng/dL (0.78-2.19)
[2025-05-16 08:24] LABS: Thyroid Stimulating Hormone 0.106 uIU/mL (0.465-4.680)
== END 2025-05-16 06:59 | disposition home or self-care (01) ==
LOC: ANHLAB 07:00
PROVIDERS: PCP Nurse Practitioner Family; Visit Provider Internal Medicine Endocrinology, Diabetes & Metabolism
DX: E03.9 Hypothyroidism, unspecified (principal)
CPT/HCPCS: 36415; 84439; 84443